=== PATIENT | female | born 1930 | race Caucasian/White ===

== ENCOUNTER 2016-06-09 15:45 | Inpatient (IN) | payer OTHER ==
[~2016-06-09] VITALS: Ht 149.9 cm; Wt 52.9 kg
[2016-06-09] MEDS ORDERED: HALOPERIDOL LACTATE 5 MG/ML 1 ML VIAL ONE (16:06)
[2016-06-09] MEDS ORDERED: LORAZEPAM 2 MG/ML 1 ML VIAL ONE (16:06)
[2016-06-09] MEDS ORDERED: LORAZEPAM 2 MG/ML 1 ML VIAL IM STA ×2 (16:07→17:03)
[2016-06-09] MEDS ORDERED: HALOPERIDOL LACTATE 5 MG/ML 1 ML VIAL IM STA ×2 (16:07→17:03)
[2016-06-09] MEDS ORDERED: SODIUM CHLORIDE 0.9% 500ML 500 ML IV STA (16:11)
--- NOTE | 2016-06-09 16:17 | EMERGENCY ROOM VISIT NOTE ---
History Report prepared by Sharon: Kerry Wakefield Under the Supervision of: Dr. Clemente Walter M.D. First contact with patient: 16:01 Chief Complaint: CONFUSION Stated Complaint: CONFUSION,COMBATIVE,SWEARING History of Present Illness The patient is a 85 year old female who presents to the Emergency Room with complaints of worsening confusion for the past couple of weeks, Per family the patient was seen at [facility] for these symptoms on May 28. She was diagnosed with a UTI. She was given a shot of antibiotics and a prescription. She had a CT scan of her head at that time. Family states that she has been increasingly confused since then. She has become much more combative. Her son states that "she fought us the whole way here." Family reports that the patient is hallucination. She is seeing people that are not actually there and she is talking to them. She takes aspirin daily but denies any other blood thinners. This history is limited due to the patient's AMS. Source of History: patient History Limited By: AMS Onset: a couple of weeks ago Position: other (global) Quality: other (confusion) Timing: worsening Review of Systems ROS is limited secondary to the patient's AMS. Past Medical & Surgical Medical Problems: (1) CAD (coronary artery disease) (2) Encephalopathy (3) GERD (gastroesophageal reflux disease) (4) HTN (hypertension) (5) Hypothyroidism (6) Tongue cancer Family History Non-pertinent due to advanced age. Social History Smoking Status: Unknown if Ever Smoked Housing Status: lives with family Occupation Status: unemployed Current/Historical Medications Scheduled Amlodipine (Norvasc), 5 MG PO DAILY Levothyroxine Sodium (Synthroid), 25 MCG PO QAM Lisinopril (Zestril), 20 MG PO DAILY Potassium Ext Rel (Klor-Con), 20 MEQ PO DAILY Ranitidine Hcl (Zantac), 150 MG PO BID Simvastatin (Zocor), 40 MG PO QPM Sotalol Hcl (Sotalol Hcl), 40 MG PO BID Allergies Coded Allergies: No Known Allergies (Unverified , 06/09/16) Physical Exam Vital Signs Date Time Temp Pulse Resp B/P Pulse Ox O2 Delivery O2 Flow Rate FiO2 06/09/16 19:45 66 16 94 06/09/16 19:15 66 13 91 2/19/17 18:45 78 15 06/09/16 18:40 173/97 06/09/16 17:53 130/86 06/09/16 17:45 88 14 06/09/16 17:15 86 16 06/09/16 16:45 103 17 96 06/09/16 16:24 97 Room Air 06/09/16 16:15 107 27 97 06/09/16 16:03 110 06/09/16 16:00 37.1 113 22 167/123 98 Room Air 06/09/16 15:58 167/123 Physical Exam GENERAL: Patient is an 85 year old female. She is combative, throwing drinks on the floor, family members holding her down. HEAD: Normocephalic atraumatic EYES: Ocular movements intact pupils equal and react to light OROPHARYNX mucous membranes are moist no exudates present no erythema or edema present NECK: Supple no nuchal rigidity CHEST: Good equal expansion LUNGS: Clear and equal to auscultation CARDIAC: Normal S1 and S2 ABDOMEN: Soft nontender no guarding BACK: No CVA tenderness EXTREMITIES: No pain upon palpation normal muscle strength in all groups no clubbing cyanosis or edema NEURO: Patient is uncooperative for examination. Medical Decision & Procedures ER Provider Diagnostic Interpretation: Radiology results as stated below per my review and radiologist interpretation: HEAD CT NONCONTRAST CT DOSE: 537.48 mGy.cm HISTORY: Mental status change Pt c/o AMS TECHNIQUE: Multiaxial CT images of the head were performed without the use of intravenous contrast. Comparison: None. Findings: The paranasal sinuses and mastoid air cells are clear. Findings of mild chronic small vessel change of aging. Normal age-related atrophy. Calcification of the basal ganglia. No acute intracranial hemorrhage. Impression: Age-related change. No acute process. Electronically signed by: Ruben Lovelace M.D. 06/09/2016 6:41 PM Dictated Date/Time: 06/09/2016 6:40 PM CHEST ONE VIEW PORTABLE CLINICAL HISTORY: Pt c/o AMS dyspnea COMPARISON STUDY: No previous studies for comparison. FINDINGS: Fixed hiatal hernia. Mild cardiomegaly. Mild emphysematous change. No evidence for focal infiltrate. IMPRESSION: Chronic change. No acute process. Electronically signed by: Ruben Lovelace M.D. 06/09/2016 4:58 PM Dictated Date/Time: 06/09/2016 4:56 PM ABDOMEN AND PELVIS CT WITH IV CONTRAST CT DOSE: 384.50 mGy.cm HISTORY: Pain. Mass. Pt c/o diffuse abd pain TECHNIQUE: Multiaxial CT images of the abdomen and pelvis were performed following the use of intravenous contrast. COMPARISON STUDY: None. FINDINGS: Lung bases are clear. A fixed hernia is present. Mild deep and bibasilar atelectasis is noted. Mild fatty infiltration of liver. Gallbladder is negative for distention. Kidneys enhance uniformly. The adrenal glands are unremarkable. There is a large primarily cystic mass arising from the pelvis and extending superiorly to the mid abdominal region. Maximum cross-sectional dimensions are 22 x 12 cm. Maximum cephalocaudal dimension is 22 cm. This mass displaces the bowel laterally. It contains focal areas of internal septation as well as lateral wall thickening primarily at the right and posterior aspect of the lesion area is appears to represent an ovarian neoplastic process. Uterus is slightly displaced posteriorly and to the right. Endometrium is somewhat prominent at 18 mm. This would indicate endometrial hyperplasia versus neoplasia. There is no evidence of bowel distention. Peritoneal and omental region show no significant carcinomatosis. The osseous structures are remarkable for mild to moderate degenerative change of aging. IMPRESSION: 1. Large primarily cystic mass arising from the soft tissue pelvis and extending in a superior fashion. 2. Maximum dimensions are 22 x 22 x 12 cm. 3. This contains several internal septations as well as several areas of peripheral wall thickening. 4. This displaces the bowel laterally although there are no obstructive characteristics. 5. No evidence for ascites or carcinomatosis/omental implants. 6. 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 7. Thickening of the endometrium at 18 mm. Differential considerations include endometrial hyperplasia versus neoplasia. 8. Bladder appears to be intact but somewhat compressed presumably due to mass effect. Hiatal hernia. Electronically signed by: Ruben Lovelace M.D. 06/09/2016 6:50 PM Dictated Date/Time: 06/09/2016 6:43 PM Laboratory Results 06/09/16 17:50 Red Blood Count 4.26, Mean Corpuscular Volume 95.3, Mean Corpuscular Hemoglobin 31.9, Mean Corpuscular Hemoglobin Concent 33.5, Mean Platelet Volume 10.1, Neutrophils (%) (Auto) 70.4, Lymphocytes (%) (Auto) 19.7, Monocytes (%) (Auto) 8.2, Eosinophils (%) (Auto) 1.5, Basophils (%) (Auto) 0.1, Neutrophils # (Auto) 4.74, Lymphocytes # (Auto) 1.33, Monocytes # (Auto) 0.55, Eosinophils # (Auto) 0.10, Basophils # (Auto) 0.01 06/09/16 17:50 Test 06/09/16 17:12 06/09/16 17:50 06/09/16 17:53 Bedside Hemoglobin 13.6 g/dl (12.0-16.0) Bedside Hematocrit 40 % (37-47) Bedside Sodium 140 mEq/L (135-144) Bedside Potassium 3.0 mEq/L (3.3-5.0) Bedside Chloride 99 mEq/L (101-112) Bedside Total CO2 20 mEq/l (24-31) Bedside Blood Urea Nitrogen 14 mg/dl (7-18) Bedside Creatinine 0.9 mg/dl (0.6-1.3) Bedside Glucose (other) 209 mg/dl (70-99) Bedside Ionized Calcium (Ale) 1.11 mmol/l (1.12-1.32) White Blood Count 6.74 K/uL (4.8-10.8) Red Blood Count 4.26 M/uL (4.2-5.4) Hemoglobin 13.6 g/dL (12.0-16.0) Hematocrit 40.6 % (37-47) Mean Corpuscular Volume 95.3 fL (80-100) Mean Corpuscular Hemoglobin 31.9 pg (25-34) Mean Corpuscular Hemoglobin Concent 33.5 g/dl (32-36) Platelet Count 267 K/uL (130-400) Mean Platelet Volume 10.1 fL (7.4-10.4) Neutrophils (%) (Auto) 70.4 % Lymphocytes (%) (Auto) 19.7 % Monocytes (%) (Auto) 8.2 % Eosinophils (%) (Auto) 1.5 % Basophils (%) (Auto) 0.1 % Neutrophils # (Auto) 4.74 K/uL (1.4-6.5) Lymphocytes # (Auto) 1.33 K/uL (1.2-3.4) Monocytes # (Auto) 0.55 K/uL (0.11-0.59) Eosinophils # (Auto) 0.10 K/uL (0-0.5) Basophils # (Auto) 0.01 K/uL (0-0.2) RDW Standard Deviation 48.3 fL (36.4-46.3) RDW Coefficient of Variation 13.9 % (11.5-14.5) Immature Granulocyte % (Auto) 0.1 % Immature Granulocyte # (Auto) 0.01 K/uL (0.00-0.02) Anion Gap 17.0 mmol/L (3-11) Est Creatinine Clear Calc Drug Dose 28.0 ml/min Estimated GFR () 43.6 Estimated GFR (Non- 37.6 BUN/Creatinine Ratio 10.8 (10-20) Calcium Level 8.6 mg/dl (8.5-10.1) Magnesium Level 1.8 mg/dl (1.8-2.4) Total Bilirubin 0.4 mg/dl (0.2-1) Direct Bilirubin < 0.1 mg/dl (0-0.2) Aspartate Amino Transf (AST/SGOT) 18 U/L (15-37) Alanine Aminotransferase (ALT/SGPT) 19 U/L (12-78) Alkaline Phosphatase 76 U/L (45-117) Total Creatine Kinase 120 U/L (26-192) Creatine Kinase MB 1.3 ng/ml (0.5-3.6) Creatine Kinase MB Ratio 1.1 (0-3.0) Troponin I < 0.015 ng/ml (0-0.045) Total Protein 7.5 gm/dl (6.4-8.2) Albumin 3.4 gm/dl (3.4-5.0) Thyroid Stimulating Hormone (TSH) 113.000 uIu/ml (0.300-4.500) Free Thyroxine 0.70 ng/dl (0.80-1.60) Urine Color YELLOW Urine Appearance CLEAR (CLEAR) Urine pH 6.0 (4.5-7.5) Urine Specific [place] 1.002 (1.000-1.030) Urine Protein NEG (NEG) Urine Glucose (UA) NEG (NEG) Urine Ketones NEG (NEG) Urine Occult Blood NEG (NEG) Urine Nitrite NEG (NEG) Urine Bilirubin NEG (NEG) Urine Urobilinogen NEG (NEG) Urine Leukocyte Esterase NEG (NEG) Labs reviewed by ED physician. Medications Administered Medications (Trade) Dose Ordered Sig/Rut Route Start Time Stop Time Status Last Admin Dose Admin Haloperidol Lactate (Haldol Inj) 5 mg NOW STAT IM 06/09/16 16:07 06/09/16 16:08 DC 06/09/16 16:17 5 MG Lorazepam 1 mg 1 mg NOW STAT IM 06/09/16 16:07 06/09/16 16:08 DC 06/09/16 16:17 1 MG Sodium Chloride (Nss 500ml) 500 ml @ 999 mls/hr Q31M STAT IV 06/09/16 16:11 06/09/16 16:41 DC 06/09/16 17:23 999 MLS/HR Ondansetron HCl (Zofran Inj) 4 mg NOW STAT IV 06/09/16 17:35 06/09/16 17:37 DC 06/09/16 19:32 4 MG Potassium Chloride (Megan Ciel Elix) 40 meq STK-MED ONCE .ROUTE 06/09/16 19:26 06/09/16 19:28 DC 06/09/16 19:33 40 MEQ ECG Indication: altered mental status Rate (beats per minute): 91 Rhythm: normal sinus Findings: no acute ischemic change, no ectopy ED Course 1601: Past medical records reviewed. The patient was evaluated in room C12B. A complete history and physical examination was performed. 1607: Ativan 1 mg IM, Haldol 5 mg IM 1611: NSS 500 ml @ 999 mls/hr IV 1650: I reassessed the patient at this time. She is still squirming and removing her things. 1703: Ativan 1 mg IM, Haldol 5 mg IM 1717: I reassessed the patient again. She is more improved and resting more comfortably. 1735: Zofran 4 mg IV, Klor-Con M10 4 meq PO 190: I reassessed the patient at this time. I discussed the results and treatment plan with the patient's family. I answered all pertaining questions that they had. They expressed understanding and verbalized agreement. 190: At this time I spoke with WYATT Singh. We discussed the patients results and treatment plan. [facility] Medical Decision Differential diagnosis: Etiologies such as metabolic, infection, hypoglycemia, electrolyte abnormalities , cardiac sources, intracerebral event, toxicologic, neurologic, as well as others were entertained. This is an 85-year-old female who presents to emergency department complaining of altered mental status. Upon arrival to emergency department the patient is combative spitting fighting and cursing at medical staff. Based on these findings and to get a proper medical assessment screening, the patient was sedated with Haldol 5 mg as well as Ativan 1 mg. Repeat examination revealed much improvement patient's symptoms. Laboratory work was able to be obtained and the patient was sent for CAT scan of the head as well as CT the abdomen pelvis. The and pelvis is concerning for a large cystic mass which appears to be ovarian in nature. I did discuss these findings with the family. The patient was admitted to the hospitalist service. Consults Time Called: [id number] Consulting Physician: WYATT Singh Returned Call: 1908 At this time I spoke with WYATT Singh. We discussed the patients results and treatment plan. The patient will be evaluated by the [facility] for further management. Impression Primary Impression: Confusion Additional Impressions: Hypokalemia Pelvic mass Critical Care I have personally spent greater than 30 minutes of critical care time in the direct management of this patient. This includes bedside care, interpretation of diagnostic studies, and testing, discussion with consultants, patient, and family members, and other required patient management activities. This 30 minutes is in excess of all separately billable procedures. Scribe Attestation The scribe's documentation has been prepared under my direction and personally reviewed by me in its entirety. I confirm that the note above accurately reflects all work, treatment, procedures, and medical decision making performed by me. Departure Information Dispostion Being Evaluated By Hospitalist Referrals No Doctor, Assigned (PCP) Patient Instructions [facility] Problem Qualifiers
[2016-06-09] MEDS ORDERED: SIMV40TA2 PO (16:24)
[2016-06-09] MEDS ORDERED: RANI150T3 PO (16:24)
[2016-06-09] MEDS ORDERED: POTA20TA16 PO (16:24)
[2016-06-09] MEDS ORDERED: SOTA80TA PO (16:24)
[2016-06-09] MEDS ORDERED: LISI-725 PO (16:24)
[2016-06-09] MEDS ORDERED: AMLO-110 PO (16:24)
[2016-06-09] MEDS ORDERED: SYN25 PO (16:34)
[2016-06-09] MEDS ORDERED: OPTIRAY 320 IV PRN (16:45)
--- NOTE | 2016-06-09 16:59 | DIAGNOSTIC IMAGING REPORT ---
CHEST ONE VIEW PORTABLE CLINICAL HISTORY: Pt c/o AMS dyspnea COMPARISON STUDY: No previous studies for comparison. FINDINGS: Fixed hiatal hernia. Mild cardiomegaly. Mild emphysematous change. No evidence for focal infiltrate. IMPRESSION: Chronic change. No acute process. Electronically signed by: Ruben Lovelace M.D. 06/09/2016 4:58 PM Dictated Date/Time: 06/09/2016 4:56 PM
[2016-06-09 17:29] LABS: ISTAT CREATININE 0.9 mg/dl (0.6-1.3); ISTAT HEMOGLOBIN 13.6 g/dl (12.0-16.0); ISTAT IONIZED CALCIUM 1.11 mmol/l (1.12-1.32)
[2016-06-09] MEDS ORDERED: POTASSIUM CHLORIDE 10 MEQ TABCR PO STA (17:35)
[2016-06-09] MEDS ORDERED: ONDANSETRON INJ 2 MG/ML 2 ML VIAL IV STA (17:35)
[2016-06-09 18:05] LABS: BASO % 0.1 %; BASO ABS # 0.01 K/uL (0-0.2); COMPLETE YES; EOS % 1.5 %; HEMATOCRIT 40.6 % (37-47); IG% 0.1 %; LYMPH % 19.7 %; LYMPH ABS # 1.33 K/uL (1.2-3.4); MEAN CELL VOLUME 95.3 fL (80-100); MEAN CORPUSCULAR HEMOGLOBIN 31.9 pg (25-34); MEAN CORPUSCULAR HGB CONC 33.5 g/dl (32-36); MEAN PLATELET VOLUME 10.1 fL (7.4-10.4); MONO % 8.2 %; NEUT % 70.4 %; PLATELET COUNT 267 K/uL (130-400); RED BLOOD COUNT 4.26 M/uL (4.2-5.4); WHITE BLOOD COUNT 6.74 K/uL (4.8-10.8)
[2016-06-09 18:25] LABS: ALT/SGPT 19 U/L (12-78); AST/SGOT 18 U/L (15-37); BLOOD UREA NITROGEN 14 mg/dl (7-18); BUN/CREATININE RATIO 10.8 (10-20); CALCIUM 8.6 mg/dl (8.5-10.1); CARBON DIOXIDE 22 mmol/L (21-32); CHLORIDE 103 mmol/L (98-107); GLUCOSE 192 mg/dl (70-99); SODIUM 142 mmol/L (136-145)
--- NOTE | 2016-06-09 18:42 | DIAGNOSTIC IMAGING REPORT ---
HEAD CT NONCONTRAST CT DOSE: 537.48 mGy.cm HISTORY: Mental status change Pt c/o AMS TECHNIQUE: Multiaxial CT images of the head were performed without the use of intravenous contrast. Comparison: None. Findings: The paranasal sinuses and mastoid air cells are clear. Findings of mild chronic small vessel change of aging. Normal age-related atrophy. Calcification of the basal ganglia. No acute intracranial hemorrhage. Impression: Age-related change. No acute process. Electronically signed by: Ruben Lovelace M.D. 06/09/2016 6:41 PM Dictated Date/Time: 06/09/2016 6:40 PM
--- NOTE | 2016-06-09 18:51 | DIAGNOSTIC IMAGING REPORT ---
ABDOMEN AND PELVIS CT WITH IV CONTRAST CT DOSE: 384.50 mGy.cm HISTORY: Pain. Mass. Pt c/o diffuse abd pain TECHNIQUE: Multiaxial CT images of the abdomen and pelvis were performed following the use of intravenous contrast. COMPARISON STUDY: None. FINDINGS: Lung bases are clear. A fixed hernia is present. Mild deep and bibasilar atelectasis is noted. Mild fatty infiltration of liver. Gallbladder is negative for distention. Kidneys enhance uniformly. The adrenal glands are unremarkable. There is a large primarily cystic mass arising from the pelvis and extending superiorly to the mid abdominal region. Maximum cross-sectional dimensions are 22 x 12 cm. Maximum cephalocaudal dimension is 22 cm. This mass displaces the bowel laterally. It contains focal areas of internal septation as well as lateral wall thickening primarily at the right and posterior aspect of the lesion area is appears to represent an ovarian neoplastic process. Uterus is slightly displaced posteriorly and to the right. Endometrium is somewhat prominent at 18 mm. This would indicate endometrial hyperplasia versus neoplasia. There is no evidence of bowel distention. Peritoneal and omental region show no significant carcinomatosis. The osseous structures are remarkable for mild to moderate degenerative change of aging. IMPRESSION: 1. Large primarily cystic mass arising from the soft tissue pelvis and extending in a superior fashion. 2. Maximum dimensions are 22 x 22 x 12 cm. 3. This contains several internal septations as well as several areas of peripheral wall thickening. 4. This displaces the bowel laterally although there are no obstructive characteristics. 5. No evidence for ascites or carcinomatosis/omental implants. 6. 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 7. Thickening of the endometrium at 18 mm. Differential considerations include endometrial hyperplasia versus neoplasia. 8. Bladder appears to be intact but somewhat compressed presumably due to mass effect. Hiatal hernia. Electronically signed by: Ruben Lovelace M.D. 06/09/2016 6:50 PM Dictated Date/Time: 06/09/2016 6:43 PM
[2016-06-09 19:15] LABS: URINE APPEARANCE CLEAR (CLEAR); URINE BILIRUBIN NEG (NEG); URINE COLOR YELLOW; URINE NITRITE NEG (NEG); URINE SPECIFIC GRAVITY 1.002 (1.000-1.030); UROBILINOGEN NEG (NEG)
[2016-06-09 19:18] LABS: MANUAL MICROSCOPIC REQUIRED? NO; REVIEW REQ? NO
[2016-06-09] MEDS ORDERED: POTASSIUM CHLORIDE 20 MEQ/15 ML UDC ONE (19:26)
[2016-06-09 19:39] LABS: ALKALINE PHOSPHATASE 76 U/L (45-117); CKMB/CK RATIO 1.1 (0-3.0)
--- NOTE | 2016-06-09 20:14 | History and Physical ---
History & Physical Date & Time of Service: Jun 09, 2016 at 19:59 Chief Complaint: Confusion,Combative,Swearing Primary Care Physician: Dr. Allan History of Present Illness 85 year old female who presents to the ER with altered mental status. Family is at the bedside who provide the history. They report that on May 28 patient had an acute change in her mental status. They report she was much more confused than her baseline. She was taken to [facility] ED and were told that her thyroid was abnormal and that she should follow up with her PCP. Patient's mental status has continued to get worse. She has become increasingly combative and has been hallucinating. Family has made multiple appointments with her PCP however they could not get her out of the house. Today in the ED patient was grabbing her stomach and appeared to be in pain. No other symptoms were noted. In the ED, patient had a CT scan of her abdomen that is showing a large mass, possibly ovarian neoplasm in nature. Labs show TSH > 100 but are otherwise unremarkable. Vitals are stable. Patient received IM Haldol and Ativan and is currently resting quietly in bed. Past Medical/Surgical History Medical Problems: (1) CAD (coronary artery disease) Permanent Comment: s/p stenting x 2 Status: Chronic (2) GERD (gastroesophageal reflux disease) Status: Chronic (3) HTN (hypertension) Status: Chronic (4) Hypothyroidism Status: Chronic (5) Tongue cancer Permanent Comment: s/p resection Status: Chronic Family History non contributory due to patient's age Social History Smoking Status: Current Every Day Smoker Alcohol Use: none Housing status: lives with family Allergies Coded Allergies: No Known Allergies (Unverified , 06/09/16) Home Medications Scheduled Amlodipine (Norvasc), 5 MG PO DAILY Levothyroxine Sodium (Synthroid), 25 MCG PO QAM Lisinopril (Zestril), 20 MG PO DAILY Potassium Ext Rel (Klor-Con), 20 MEQ PO DAILY Ranitidine Hcl (Zantac), 150 MG PO BID Simvastatin (Zocor), 40 MG PO QPM Sotalol Hcl (Sotalol Hcl), 40 MG PO BID Review of Systems unable to be completed with patient due to mental status Physical Exam Vital Signs Date Time Temp Pulse Resp B/P Pulse Ox O2 Delivery O2 Flow Rate FiO2 06/09/16 19:45 66 16 94 06/09/16 19:15 66 13 91 06/09/16 18:45 78 15 06/09/16 18:40 173/97 06/09/16 17:53 130/86 06/09/16 17:45 88 14 06/09/16 17:15 86 16 06/09/16 16:45 103 17 96 06/09/16 16:24 97 Room Air 06/09/16 16:15 107 27 97 06/09/16 16:03 110 06/09/16 16:00 37.1 113 22 167/123 98 Room Air 06/09/16 15:58 167/123 General Appearance: no apparent distress Head: normocephalic Eyes: normal inspection ENT: hearing grossly normal Neck: supple, no JVD Respiratory/Chest: lungs clear, normal breath sounds, no respiratory distress Cardiovascular: regular rate, rhythm, no edema, normal peripheral pulses Abdomen/GI: normal bowel sounds, non tender, soft, + distended Extremities/Musculoskelatal: normal inspection, no calf tenderness Neurologic/Psych: + pertinent finding (opens eyes to verbal stimuli however does not speak; noted patient received IM Haldol and Ativan in ED ) Skin: normal color, warm/dry Diagnostics Laboratory Results Results Past 24 Hours Test 06/09/16 17:12 06/09/16 17:50 06/09/16 17:53 Range/Units Bedside Hemoglobin 13.6 12.0-16.0 g/dl Bedside Hematocrit 40 37-47 % Bedside Sodium 140 135-144 mEq/L Bedside Potassium 3.0 3.3-5.0 mEq/L Bedside Chloride 99 101-112 mEq/L Bedside Total CO2 20 24-31 mEq/l Anion Gap 24.0 17.0 3-11 mmol/L Bedside Blood Urea Nitrogen 14 7-18 mg/dl Bedside Creatinine 0.9 0.6-1.3 mg/dl Bedside Glucose (other) 209 70-99 mg/dl Bedside Ionized Calcium (Ale) 1.11 1.12-1.32 mmol/l White Blood Count 6.74 4.8-10.8 K/uL Red Blood Count 4.26 4.2-5.4 M/uL Hemoglobin 13.6 12.0-16.0 g/dL Hematocrit 40.6 37-47 % Mean Corpuscular Volume 95.3 80-100 fL Mean Corpuscular Hemoglobin 31.9 25-34 pg Mean Corpuscular Hemoglobin Concent 33.5 32-36 g/dl Platelet Count 267 130-400 K/uL Mean Platelet Volume 10.1 7.4-10.4 fL Neutrophils (%) (Auto) 70.4 % Lymphocytes (%) (Auto) 19.7 % Monocytes (%) (Auto) 8.2 % Eosinophils (%) (Auto) 1.5 % Basophils (%) (Auto) 0.1 % Neutrophils # (Auto) 4.74 1.4-6.5 K/uL Lymphocytes # (Auto) 1.33 1.2-3.4 K/uL Monocytes # (Auto) 0.55 0.11-0.59 K/uL Eosinophils # (Auto) 0.10 0-0.5 K/uL Basophils # (Auto) 0.01 0-0.2 K/uL RDW Standard Deviation 48.3 36.4-46.3 fL RDW Coefficient of Variation 13.9 11.5-14.5 % Immature Granulocyte % (Auto) 0.1 % Immature Granulocyte # (Auto) 0.01 0.00-0.02 K/uL Sodium Level 142 136-145 mmol/L Potassium Level 3.0 3.5-5.1 mmol/L Chloride Level 103 98-107 mmol/L Carbon Dioxide Level 22 21-32 mmol/L Blood Urea Nitrogen 14 7-18 mg/dl Creatinine 1.30 0.60-1.20 mg/dl Est Creatinine Clear Calc Drug Dose 28.0 ml/min Estimated GFR () 43.6 Estimated GFR (Non- 37.6 BUN/Creatinine Ratio 10.8 10-20 Random Glucose 192 70-99 mg/dl Calcium Level 8.6 8.5-10.1 mg/dl Total Bilirubin 0.4 0.2-1 mg/dl Direct Bilirubin < 0.1 0-0.2 mg/dl Aspartate Amino Transf (AST/SGOT) 18 15-37 U/L Alanine Aminotransferase (ALT/SGPT) 19 12-78 U/L Alkaline Phosphatase 76 45-117 U/L Total Creatine Kinase 120 26-192 U/L Creatine Kinase MB 1.3 0.5-3.6 ng/ml Creatine Kinase MB Ratio 1.1 0-3.0 Troponin I < 0.015 0-0.045 ng/ml Total Protein 7.5 6.4-8.2 gm/dl Albumin 3.4 3.4-5.0 gm/dl Thyroid Stimulating Hormone (TSH) > 100.000 0.300-4.500 uIu/ml Urine Color YELLOW Urine Appearance CLEAR CLEAR Urine pH 6.0 4.5-7.5 Urine Specific [place] 1.002 1.000-1.030 Urine Protein NEG NEG Urine Glucose (UA) NEG NEG Urine Ketones NEG NEG Urine Occult Blood NEG NEG Urine Nitrite NEG NEG Urine Bilirubin NEG NEG Urine Urobilinogen NEG NEG Urine Leukocyte Esterase NEG NEG Diagnostic Radiology CXR Impression: Age-related change. No acute process. CT HEAD IMPRESSION: Chronic change. No acute process. CT ABD/PELVIS IMPRESSION: 1. Large primarily cystic mass arising from the soft tissue pelvis and extending in a superior fashion. 2. Maximum dimensions are 22 x 22 x 12 cm. 3. This contains several internal septations as well as several areas of peripheral wall thickening. 4. This displaces the bowel laterally although there are no obstructive characteristics. 5. No evidence for ascites or carcinomatosis/omental implants. 6. 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 7. Thickening of the endometrium at 18 mm. Differential considerations include endometrial hyperplasia versus neoplasia. 8. Bladder appears to be intact but somewhat compressed presumably due to mass effect. Hiatal hernia. Impression Assessment and Plan ALTERED MENTAL STATUS - patient presenting with 10 day history of increasing confusion and agitation - CT abd/pelvis shows large pelvic mass concerning for ovarian neoplasm - CT head negative; likely will need MRI - U/A clean PELVIC MASS - concerning for ovarian neoplasm - gyne consult HYPOTHYROIDISM - TSH > 100 - adjust levothyroxine HTN - on amlodipine and lisinopril CAD - [facility] follows with DR. Lieberman - will get records ? HX ARRHYTHMIA - on Sotalol - will need to review cardiology records Assessment/Plan IM ATTENDING : Patient seen and examined. Preceding documentation by WYATT Gutiérrez, reviewed. FINAL ASSESSMENT AND PLAN as follows: 1. 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 Hypertension stable 3. CAD status post stenting 4. SSS, px refused PPM as per family 5. hypothyroidism, TSH elevated questionable compliance 6. hyperglycemia rule out DM 7. ongoing tobacco abuse. 8. Pelvic mass, probable malignancy PCU. MRI of the brain. Further management pending MRI results. Gynecology consults for pelvic mass. Check hemoglobin A1c. increase Levothyroxine dose, recheck TSH next month PT/OT evaluation. DVT prophylaxis Lovenox subQ. Full code as per daughter, Miss Charis Sullivan. Contact number [phone]
[2016-06-09 20:32] LABS: MAGNESIUM 1.8 mg/dl (1.8-2.4)
[2016-06-09] MEDS ORDERED: NITROGLYCERIN 0.4 MG SL PER TAB CHARGE SL PRN (21:15)
[2016-06-09] MEDS ORDERED: TRAMADOL HCL 50 MG TAB PO PRN (21:15)
[2016-06-09] MEDS ORDERED: ONDANSETRON INJ 2 MG/ML 2 ML VIAL IV PRN (21:15)
[2016-06-09] MEDS ORDERED: ACETAMINOPHEN 325 MG TAB PO PRN (21:15)
[2016-06-09] MEDS ORDERED: LACTATED RINGER'S 1000ML 1,000 ML IV ONE ×2 (21:15→22:30)
[2016-06-09] MEDS ORDERED: HYDROmorphone INJ 0.5 MG/0.5 ML SYR IV PRN (21:15)
[2016-06-09] MEDS ORDERED: HALOPERIDOL LACTATE 5 MG/ML 1 ML VIAL IM PRN (21:15)
[2016-06-09 21:53] VITALS: BP 179/109; PULSE 75; TEMP 36.3; O2SAT 94; Ht 149.9 cm; Wt 52.9 kg
[2016-06-09 23:12] VITALS: BP 165/92; PULSE 72; TEMP 36.7; O2SAT 95
[2016-06-09 23:59] VITALS: O2SAT 94
[2016-06-10] VITALS (7 sets, daily range): BP systolic 128–180; BP diastolic 72–84; PULSE 69–105; TEMP 36.4–37; O2SAT 94–98
[2016-06-10] MEDS ORDERED: HALOPERIDOL 1 MG TAB PO PRN (03:30)
--- NOTE | 2016-06-10 03:59 | HISTORY & PHYSICAL EXAMINATION ---
DATE OF ADMISSION: 06/09/2016 IM ATTENDING : Patient seen and examined. Preceding documentation by WYATT Gutiérrez, reviewed. FINAL ASSESSMENT AND PLAN as follows: 1. Encephalopathy in the last 2 weeks differentials include : CVA, DEPALLETIZER OPERATOR tumor 2. Hypertension stable 3. CAD status post stenting 4. SSS, px refused PPM as per family 5. hypothyroidism, TSH elevated questionable compliance 6. hyperglycemia rule out DM 7. ongoing tobacco abuse. 8. Pelvic mass, probable malignancy PCU. MRI of the brain. Further management pending MRI results. Gynecology consults for pelvic mass. Check hemoglobin A1c. increase Levothyroxine dose, recheck TSH next month PT/OT evaluation. DVT prophylaxis Lovenox subQ. Full code as per daughter, Miss Charis Sullivan. Contact number [phone] [facility]
[2016-06-10] MEDS: LEVOTHYROXINE 25 MCG TAB PO SCH (05:55)
[2016-06-10 06:31] LABS: BASO % 0.3 %; BASO ABS # 0.02 K/uL (0-0.2); COMPLETE YES; EOS % 1.3 %; HEMATOCRIT 36.9 % (37-47); IG% 0.2 %; LYMPH % 28.1 %; MEAN CELL VOLUME 93.4 fL (80-100); MEAN CORPUSCULAR HEMOGLOBIN 31.1 pg (25-34); MEAN CORPUSCULAR HGB CONC 33.3 g/dl (32-36); MEAN PLATELET VOLUME 9.8 fL (7.4-10.4); MONO % 11.9 %; NEUT % 58.2 %; PLATELET COUNT 261 K/uL (130-400); RED BLOOD COUNT 3.95 M/uL (4.2-5.4); WHITE BLOOD COUNT 6.06 K/uL (4.8-10.8)
[2016-06-10 07:12] LABS: INR 1.1 (0.9-1.1); PROTHROMBIN TIME (PATIENT) 11.6 SECONDS (9.0-12.0)
[2016-06-10 07:19] LABS: BUN/CREATININE RATIO 13.1 (10-20); CALCIUM 8.5 mg/dl (8.5-10.1); CREATININE 0.7 mg/dl (0.60-1.20); POTASSIUM 3.7 mmol/L (3.5-5.1)
[2016-06-10 08:23] LABS: ESTIMATED AVERAGE GLUCOSE 128 mg/dl; HA1C FLAG Normal (Normal)
[2016-06-10] MEDS ORDERED: ENOXAPARIN 30 MG/0.3 ML SYR SC SCH (09:00)
--- NOTE | 2016-06-10 09:16 | Progress Note ---
Medicine Progress Note Date & Time of Visit: Jun 10, 2016 at 08:59. Subjective no acute events overnight seen this AM with ROLANDO Mcmillan/Adán peñaloza, very hard of hearing, cooperative denies pain, shortness of breath ROS difficult to assess due to confusion Objective Last 8 Hrs Date Time Temp Pulse Resp B/P Pulse Ox O2 Delivery O2 Flow Rate FiO2 06/10/16 07:24 37.0 69 18 171/83 98 Room Air 06/10/16 04:00 94 Room Air 06/10/16 03:41 36.7 75 18 152/83 97 Room Air Physical Exam: General- not oriented, pleasant, not in distress, no acc muscle use Head- atraumatic Eyes- anicteric ENT- oropharynx clear Neck- supple, no JVD, no adenopathy, no thyromegaly Lungs- clear breath sounds bilaterally Heart- normal rate, regular rhythm; no murmurs Abdomen- normal bowel sounds, soft, nontender Extremities- no pretibial edema, no calf tenderness; peripheral pulses intact Neuro- alert, not oriented; PERRL, EOMI; no facial palsy; moves all extremities equally Skin- warm & dry Laboratory Results: Last 24 Hours Test 06/09/16 17:12 06/09/16 17:50 06/09/16 17:53 06/10/16 05:40 Bedside Hemoglobin 13.6 g/dl Bedside Hematocrit 40 % Bedside Sodium 140 mEq/L Bedside Potassium 3.0 mEq/L Bedside Chloride 99 mEq/L Bedside Total CO2 20 mEq/l Anion Gap 24.0 mmol/L 17.0 mmol/L 13.0 mmol/L Bedside Blood Urea Nitrogen 14 mg/dl Bedside Creatinine 0.9 mg/dl Bedside Glucose (other) 209 mg/dl Bedside Ionized Calcium (Ale) 1.11 mmol/l White Blood Count 6.74 K/uL 6.06 K/uL Red Blood Count 4.26 M/uL 3.95 M/uL Hemoglobin 13.6 g/dL 12.3 g/dL Hematocrit 40.6 % 36.9 % Mean Corpuscular Volume 95.3 fL 93.4 fL Mean Corpuscular Hemoglobin 31.9 pg 31.1 pg Mean Corpuscular Hemoglobin Concent 33.5 g/dl 33.3 g/dl Platelet Count 267 K/uL 261 K/uL Mean Platelet Volume 10.1 fL 9.8 fL Neutrophils (%) (Auto) 70.4 % 58.2 % Lymphocytes (%) (Auto) 19.7 % 28.1 % Monocytes (%) (Auto) 8.2 % 11.9 % Eosinophils (%) (Auto) 1.5 % 1.3 % Basophils (%) (Auto) 0.1 % 0.3 % Neutrophils # (Auto) 4.74 K/uL 3.53 K/uL Lymphocytes # (Auto) 1.33 K/uL 1.70 K/uL Monocytes # (Auto) 0.55 K/uL 0.72 K/uL Eosinophils # (Auto) 0.10 K/uL 0.08 K/uL Basophils # (Auto) 0.01 K/uL 0.02 K/uL RDW Standard Deviation 48.3 fL 47.2 fL RDW Coefficient of Variation 13.9 % 13.8 % Immature Granulocyte % (Auto) 0.1 % 0.2 % Immature Granulocyte # (Auto) 0.01 K/uL 0.01 K/uL Sodium Level 142 mmol/L 144 mmol/L Potassium Level 3.0 mmol/L 3.7 mmol/L Chloride Level 103 mmol/L 107 mmol/L Carbon Dioxide Level 22 mmol/L 24 mmol/L Blood Urea Nitrogen 14 mg/dl 9 mg/dl Creatinine 1.30 mg/dl 0.70 mg/dl Est Creatinine Clear Calc Drug Dose 28.0 ml/min 44.7 ml/min Estimated GFR () 43.6 92.2 Estimated GFR (Non- 37.6 79.6 BUN/Creatinine Ratio 10.8 13.1 Random Glucose 192 mg/dl 90 mg/dl Estimated Average Glucose 128 mg/dl Hemoglobin A1c 6.1 % Calcium Level 8.6 mg/dl 8.5 mg/dl Magnesium Level 1.8 mg/dl Total Bilirubin 0.4 mg/dl Direct Bilirubin < 0.1 mg/dl Aspartate Amino Transf (AST/SGOT) 18 U/L Alanine Aminotransferase (ALT/SGPT) 19 U/L Alkaline Phosphatase 76 U/L Total Creatine Kinase 120 U/L Creatine Kinase MB 1.3 ng/ml Creatine Kinase MB Ratio 1.1 Troponin I < 0.015 ng/ml Total Protein 7.5 gm/dl Albumin 3.4 gm/dl Thyroid Stimulating Hormone (TSH) 113.000 uIu/ml Free Thyroxine 0.70 ng/dl Urine Color YELLOW Urine Appearance CLEAR Urine pH 6.0 Urine Specific [place] 1.002 Urine Protein NEG Urine Glucose (UA) NEG Urine Ketones NEG Urine Occult Blood NEG Urine Nitrite NEG Urine Bilirubin NEG Urine Urobilinogen NEG Urine Leukocyte Esterase NEG Test 06/10/16 06:53 Prothrombin Time 11.6 SECONDS Prothromb Time International Ratio 1.1 Assessment & Plan 85 year old female with history of CAD, s/p Stent, Sick Sinus Syndrome, HTN, GERD, Hypothyroidism presenting with altered mental status. ALTERED MENTAL STATUS, possible Acute Delirium on Dementia - patient presenting with 10 day history of increasing confusion and agitation - recently treated for UTI with antibiotics will obtain records from [facility] - CT abd/pelvis shows large pelvic mass concerning for ovarian neoplasm CT head negative Brain MRI: pending - from partially treated UTI or Antibiotic related? will obtain records from [facility] will repeat urine cultures - r/o CVA, Mets? MRI brain - Hypothyroidism? Lthyroxine increased to 50mcg will consult Neurology PELVIC MASS - concerning for ovarian neoplasm - gyne consulted HYPOTHYROIDISM - TSH > 100 - no other overt signs of myxedema coma - lthyroxine increased from 25 to 50mcg repeat TFTs in 3-4 weeks have to be conservative with increasing lthyroxine due to CAD history HTN - on amlodipine and lisinopril - monitor CAD - s/p stenting x 2 in 2013 at [facility] [place] - follows with DR. Lieberman - will get records - should be on Aspirin, will verify with family HX ARRHYTHMIA - on Sotalol DVT prophylaxis Lovenox Disposition pending Current Inpatient Medications: Current Inpatient Medications Medications (Trade) Dose Ordered Sig/Rut Route Start Time Stop Time Status Last Admin Dose Admin Ioversol (Optiray 320) 125 ml UD PRN IV 06/09/16 16:45 06/13/16 16:44 Enoxaparin Sodium (Lovenox Inj) 30 mg DAILY SC 06/10/16 09:00 07/10/16 08:59 Acetaminophen (Tylenol Tab) 650 mg Q4H PRN PO 06/09/16 21:15 07/09/16 21:14 Nitroglycerin (Nitrostat Tab) 0.4 mg UD PRN SL 06/09/16 21:15 07/09/16 21:14 Ondansetron HCl (Zofran Inj) 4 mg Q6H PRN IV 06/09/16 21:15 07/09/16 21:14 Tramadol HCl (Ultram Tab) 25 mg Q6H PRN PO 06/09/16 21:15 07/09/16 21:14 Hydromorphone HCl (Dilaudid Inj) 0.5 mg Q3H PRN IV 06/09/16 21:15 06/23/16 21:14 Haloperidol Lactate (Haldol Inj) 2 mg Q2H PRN IM 06/09/16 21:15 07/09/16 21:14 Amlodipine Besylate (Norvasc Tab) 5 mg DAILY PO 06/10/16 09:00 07/10/16 08:59 Levothyroxine Sodium (Synthroid Tab) 50 mcg DAILYBB PO 06/10/16 06:00 07/10/16 05:59 06/10/16 05:55 50 MCG Lisinopril (Zestril Tab) 20 mg DAILY PO 06/10/16 09:00 07/10/16 08:59 Ranitidine HCl (zANTac TAB) 150 mg BID PO 06/10/16 09:00 07/10/16 08:59 Simvastatin (Zocor Tab) 40 mg QPM PO 06/10/16 21:00 07/10/16 20:59 Sotalol HCl 40 mg 40 mg BID PO 06/10/16 09:00 07/10/16 08:59 Lactated Ringer's (Lr 1000ml) 1,000 ml @ 75 mls/hr [id number] ONCE IV 06/09/16 22:30 06/10/16 11:49 06/09/16 22:19 75 MLS/HR Nicotine (Nicoderm Cq 7 Mg Patch) 1 patch QAM TD 06/10/16 09:00 07/10/16 08:59 Miscellaneous (Remove Nicoderm Patch) 1 ea HS N/A 06/10/16 21:00 07/10/16 20:59 Haloperidol (Haldol Tab) 2 mg Q4H PRN PO 06/10/16 03:30 07/10/16 03:29
[2016-06-10] MEDS ORDERED: CLONIDINE HCL 0.1 MG TAB PO PRN (09:30)
[2016-06-10] MEDS ORDERED: ASPIRIN 81 MG ECTAB PO ONE (10:00)
[2016-06-10] MEDS: LISINOPRIL 20 MG TAB PO SCH ×2 (10:03→10:11)
[2016-06-10] MEDS: RANITIDINE HCL 150 MG TAB PO SCH ×3 (10:03→21:47)
[2016-06-10] MEDS: AMLODIPINE BESYLATE 5 MG TAB PO SCH ×2 (10:03→10:11)
[2016-06-10] MEDS: SOTALOL HCL 80 MG TAB PO SCH ×3 (10:03→21:48)
[2016-06-10] MEDS: NICOTINE 7 MG/24 HR TDSY TD SCH (10:04)
[2016-06-10] MEDS: ENOXAPARIN 40 MG/0.4 ML SYR SC SCH (10:04)
--- NOTE | 2016-06-10 14:03 | Neurology Consultation ---
Neurology Consultation Date of Consultation: Jun 10, 2016. Attending Physician: Lalo Marinelli MD Primary Care Physician: No Doctor, Assigned Reason for Consultation: altered MS History of Present Illness Source: patient, family Zeenat is an 85 year old female who has a PMH HTN, hyperthyroid, GERD, tongue CA , CAD x 2 stents, afib. presents to the ER with altered mental status. According to family on May 28 patient had an acute change in her mental status which was different than her baseline. At [facility] she was told her thyroid was abnormal and that she should follow up with her PCP. She has became increasingly combative and has been hallucinating. They tried to get her to her PCP appointment but Zeenat wouldn't let them take her out of the house. CT scan of her abdomen that is showing a large mass after she complained of abdominal pain. Labs show TSH > 100. Her granddaughter states she was hitting everyone and tossed a cell phone out the car window and was swearing which is not her normal. She was also talking to people that that were not there. She is very [place] and has cataracts in both eye which causes vision issues. Social History Alcohol Use: none Housing Status: lives with family Allergies Coded Allergies: No Known Allergies (Unverified , 06/09/16) Current Inpatient Medications Current Inpatient Medications Medications (Trade) Dose Ordered Sig/Rut Route Start Time Stop Time Status Last Admin Dose Admin Ioversol (Optiray 320) 125 ml UD PRN IV 06/09/16 16:45 06/13/16 16:44 Acetaminophen (Tylenol Tab) 650 mg Q4H PRN PO 06/09/16 21:15 07/09/16 21:14 Nitroglycerin (Nitrostat Tab) 0.4 mg UD PRN SL 06/09/16 21:15 07/09/16 21:14 Ondansetron HCl (Zofran Inj) 4 mg Q6H PRN IV 06/09/16 21:15 07/09/16 21:14 Tramadol HCl (Ultram Tab) 25 mg Q6H PRN PO 06/09/16 21:15 07/09/16 21:14 Hydromorphone HCl (Dilaudid Inj) 0.5 mg Q3H PRN IV 06/09/16 21:15 06/23/16 21:14 Haloperidol Lactate (Haldol Inj) 2 mg Q2H PRN IM 06/09/16 21:15 07/09/16 21:14 Amlodipine Besylate (Norvasc Tab) 5 mg DAILY PO 06/10/16 09:00 07/10/16 08:59 Levothyroxine Sodium (Synthroid Tab) 50 mcg DAILYBB PO 06/10/16 06:00 07/10/16 05:59 06/10/16 05:55 50 MCG Lisinopril (Zestril Tab) 20 mg DAILY PO 06/10/16 09:00 07/10/16 08:59 Ranitidine HCl (zANTac TAB) 150 mg BID PO 06/10/16 09:00 07/10/16 08:59 Simvastatin (Zocor Tab) 40 mg QPM PO 06/10/16 21:00 07/10/16 20:59 Sotalol HCl (Betapace Tab) 40 mg BID PO 06/10/16 09:00 07/10/16 08:59 Nicotine (Nicoderm Cq 7 Mg Patch) 1 patch QAM TD 06/10/16 09:00 07/10/16 08:59 06/10/16 10:04 1 PATCH Miscellaneous (Remove Nicoderm Patch) 1 ea HS N/A 06/10/16 21:00 07/10/16 20:59 Haloperidol (Haldol Tab) 2 mg Q4H PRN PO 06/10/16 03:30 07/10/16 03:29 Enoxaparin Sodium (Lovenox Inj) 40 mg DAILY SC 06/10/16 10:00 07/10/16 09:59 06/10/16 10:04 40 MG Clonidine HCl (Catapres Tab) 0.1 mg Q6H PRN PO 06/10/16 09:30 07/10/16 09:29 Aspirin (Ecotrin Tab) 81 mg QAM PO 06/11/16 09:00 07/11/16 08:59 Physical Exam Vital Signs (Past 24 Hrs): Date Time Temp Pulse Resp B/P Pulse Ox O2 Delivery O2 Flow Rate FiO2 06/10/16 12:00 Room Air 06/10/16 11:23 36.8 76 18 180/84 97 Room Air 06/10/16 08:00 Room Air 06/10/16 07:24 37.0 69 18 171/83 98 Room Air 06/10/16 04:00 94 Room Air 06/10/16 03:41 36.7 75 18 152/83 97 Room Air 06/09/16 23:59 94 Room Air 06/09/16 23:12 36.7 72 20 165/92 95 Room Air 06/09/16 21:53 36.3 75 18 179/109 94 Room Air 06/09/16 19:45 66 16 94 06/09/16 19:15 66 13 91 06/09/16 18:45 78 15 06/09/16 18:40 173/97 06/09/16 17:53 130/86 06/09/16 17:45 88 14 06/09/16 17:15 86 16 06/09/16 16:45 103 17 96 06/09/16 16:24 97 Room Air 06/09/16 16:15 107 27 97 06/09/16 16:03 110 06/09/16 16:00 37.1 113 22 167/123 98 Room Air 06/09/16 15:58 167/123 Physical Exam: Constitutional:, appearance nourished, healthy and normal sitting comfortably in bedside chair Ears, Nose, Mouth and Throat: mucous membranes moist, no injection and skin normal, eyes normal Cardiovascular: irregular irregular Respiratory: clear to auscultation (CTA) and no rales, rhonchi or wheeze Musculoskeletal: no peripheral edema and good distal pulses Skin: no stigmata of neurocutaneous disease noted and normal and intact Eyes: extraocular muscles intact (EOMI) and pupils equal, round and reactive to light (PERRL) NEUROLOGIC EXAMINATION: Mental status: Alert and interactive Oriented she knows she is in a hospital, year 2016, knows her home address Oriented to person Speech fluent with no evidence of aphasia Cranial Nerves no facial asymmetry Reflexes: Deep tendon reflexes were symmetrical and graded 2/5. Plantar responses were flexor. Gait/Stance: Posture normal. Gait normal: with steady with steps, base, turning and tandem gait. Strength: hand brokerage clerk 4/5 bilaterally fingers with ulner deviation bilaterally, walks with no assistance stands without assistance from arms of chair Laboratory Results Past 24 Hours: 06/10/16 05:40 Red Blood Count 3.95, Mean Corpuscular Volume 93.4, Mean Corpuscular Hemoglobin 31.1, Mean Corpuscular Hemoglobin Concent 33.3, Mean Platelet Volume 9.8, Neutrophils (%) (Auto) 58.2, Lymphocytes (%) (Auto) 28.1, Monocytes (%) (Auto) 11.9, Eosinophils (%) (Auto) 1.3, Basophils (%) (Auto) 0.3, Neutrophils # (Auto ) 3.53, Lymphocytes # (Auto) 1.70, Monocytes # (Auto) 0.72, Eosinophils # (Auto ) 0.08, Basophils # (Auto) 0.02 06/10/16 05:40 Test 06/09/16 17:12 06/09/16 17:50 06/09/16 17:53 06/10/16 05:40 Bedside Hemoglobin 13.6 g/dl (12.0-16.0) Bedside Hematocrit 40 % (37-47) Bedside Sodium 140 mEq/L (135-144) Bedside Potassium 3.0 mEq/L (3.3-5.0) Bedside Chloride 99 mEq/L (101-112) Bedside Total CO2 20 mEq/l (24-31) Bedside Blood Urea Nitrogen 14 mg/dl (7-18) Bedside Creatinine 0.9 mg/dl (0.6-1.3) Bedside Glucose (other) 209 mg/dl (70-99) Bedside Ionized Calcium (Ale) 1.11 mmol/l (1.12-1.32) Estimated Average Glucose 128 mg/dl Hemoglobin A1c 6.1 % (4.5-5.6) Magnesium Level 1.8 mg/dl (1.8-2.4) Total Bilirubin 0.4 mg/dl (0.2-1) Direct Bilirubin < 0.1 mg/dl (0-0.2) Aspartate Amino Transf (AST/SGOT) 18 U/L (15-37) Alanine Aminotransferase (ALT/SGPT) 19 U/L (12-78) Alkaline Phosphatase 76 U/L (45-117) Total Creatine Kinase 120 U/L (26-192) Creatine Kinase MB 1.3 ng/ml (0.5-3.6) Creatine Kinase MB Ratio 1.1 (0-3.0) Troponin I < 0.015 ng/ml (0-0.045) Total Protein 7.5 gm/dl (6.4-8.2) Albumin 3.4 gm/dl (3.4-5.0) Thyroid Stimulating Hormone (TSH) 113.000 uIu/ml (0.300-4.500) Free Thyroxine 0.70 ng/dl (0.80-1.60) Urine Color YELLOW Urine Appearance CLEAR (CLEAR) Urine pH 6.0 (4.5-7.5) Urine Specific [place] 1.002 (1.000-1.030) Urine Protein NEG (NEG) Urine Glucose (UA) NEG (NEG) Urine Ketones NEG (NEG) Urine Occult Blood NEG (NEG) Urine Nitrite NEG (NEG) Urine Bilirubin NEG (NEG) Urine Urobilinogen NEG (NEG) Urine Leukocyte Esterase NEG (NEG) White Blood Count 6.06 K/uL (4.8-10.8) Red Blood Count 3.95 M/uL (4.2-5.4) Hemoglobin 12.3 g/dL (12.0-16.0) Hematocrit 36.9 % (37-47) Mean Corpuscular Volume 93.4 fL (80-100) Mean Corpuscular Hemoglobin 31.1 pg (25-34) Mean Corpuscular Hemoglobin Concent 33.3 g/dl (32-36) Platelet Count 261 K/uL (130-400) Mean Platelet Volume 9.8 fL (7.4-10.4) Neutrophils (%) (Auto) 58.2 % Lymphocytes (%) (Auto) 28.1 % Monocytes (%) (Auto) 11.9 % Eosinophils (%) (Auto) 1.3 % Basophils (%) (Auto) 0.3 % Neutrophils # (Auto) 3.53 K/uL (1.4-6.5) Lymphocytes # (Auto) 1.70 K/uL (1.2-3.4) Monocytes # (Auto) 0.72 K/uL (0.11-0.59) Eosinophils # (Auto) 0.08 K/uL (0-0.5) Basophils # (Auto) 0.02 K/uL (0-0.2) RDW Standard Deviation 47.2 fL (36.4-46.3) RDW Coefficient of Variation 13.8 % (11.5-14.5) Immature Granulocyte % (Auto) 0.2 % Immature Granulocyte # (Auto) 0.01 K/uL (0.00-0.02) Anion Gap 13.0 mmol/L (3-11) Est Creatinine Clear Calc Drug Dose 44.7 ml/min Estimated GFR () 92.2 Estimated GFR (Non- 79.6 BUN/Creatinine Ratio 13.1 (10-20) Calcium Level 8.5 mg/dl (8.5-10.1) Test 06/10/16 06:53 Prothrombin Time 11.6 SECONDS (9.0-12.0) Prothromb Time International Ratio 1.1 (0.9-1.1) Imaging CT C/A- Large primarily cystic mass arising from the soft tissue pelvis and extending in a superior fashion. 2. Maximum dimensions are 22 x 22 x 12 cm. This contains several internal septations as well as several areas of peripheral wall thickening. This displaces the bowel laterally although there are no obstructive characteristics. No evidence for ascites or carcinomatosis/ omental implants. 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 Thickening of the endometrium at 18 mm. Differential considerations include endometrial hyperplasia versus neoplasia. Bladder appears to be intact but somewhat compressed presumably due to mass effect. Hiatal hernia. Impression 85 year old female with acute ms change from baseline Plan 1. EEG pending read 2. MRI brain with and without contrast -pending 3. TSH >100 can cause MS changes 4. evaluation of abdominal tumor for further treatment needed 5. B12, folate, RPR, lyme ordered 6. need psychiatry consult 7. appears MS change may be multi factorial further recommendations to follow after MRI completed I have seen and discussed above patient with Dr Nemesio Cuevas, neurology Patient seen family interviewed patient discussed with Liana Funk likely a multifactoria encephalopathy of recentt onset if family history is valid and with the marked elevation of the tsh and the ovarian mass there are a number of issues that need addressed Will wait for mri to eliminate mets EEG is normal and will defer on paraneoplastic workup pending tissue diagnosis of ovarian mass which may b benign but if a teratoma could be asociated with N NMDA receptor antibody will follow uip tomorrow If agitation perisists may need to get psych inovolved Nemesio Cuevas MD
[2016-06-10 15:54] LABS: LYME DISEASE AB IGM NEG (NEG)
--- NOTE | 2016-06-10 21:39 | DIAGNOSTIC IMAGING REPORT ---
Brain MRI WITHOUT CONTRAST HISTORY: Change in mental status personality change TECHNIQUE: Multiplanar multisequence MRI of the brain was performed without the use of contrast. COMPARISON STUDY: None. FINDINGS: Small focus of acute ischemic change left external capsule. Mild chronic small vessel change of aging throughout both cerebral hemispheres. Ventricular system is midline. Internal artery canals are symmetric. Limited study as the patient could not tolerate the exam IMPRESSION: Small punctate focus of acute ischemic change left external capsule. Age-related changes noted. Electronically signed by: Ruben Lovelace M.D. 06/10/2016 9:37 PM Dictated Date/Time: 06/10/2016 9:35 PM
[2016-06-10] MEDS: SIMVASTATIN 40 MG TAB PO SCH (21:48)
[2016-06-11] VITALS (10 sets, daily range): BP systolic 117–181; BP diastolic 65–105; PULSE 59–105; TEMP 36.5–36.8; O2SAT 94–99
[2016-06-11 01:13] LABS: RAPID PLASMA REAGIN NONREACTIVE (NONREACT)
--- NOTE | 2016-06-11 01:24 | ELECTROENCEPHALOGRAPH REPORT ---
REQUESTING PHYSICIAN: No requesting doctor. CLINICAL DIAGNOSIS: Change in mental status, question nonconvulsive seizure activity. ELECTROENCEPHALOGRAM DIAGNOSIS: Essentially normal during wakefulness. DESCRIPTION OF TRACING: This EEG was obtained as a bedside recording. No activation procedures were utilized. The video analysis of patient movement and behavior was obtained. During wakefulness, there is evidence for normal appearing background rhythm in the alpha range of up to 9 Hz of maximum frequency and 20-30 microvolts of maximum amplitude. This is maximum posterior head regions and bilaterally symmetrical. Polymorphic mid frequency theta activity is seen over all head regions without clear focal or regional predominance. Anterior head region, maximal bilaterally symmetrical low voltage fast activity in the beta range is present. From time to time, there are some prominent movement artifacts, but at no time is there evidence for activity that resembles potentially epileptogenic discharges. There is no evidence for focal spikes, focal sharp waves, spike and wave discharges, etc. INTERPRETATION: This EEG is essentially normal during wakefulness without evidence for focal or generalized encephalopathy and without evidence for potentially epileptogenic activity.
[2016-06-11] MEDS: LEVOTHYROXINE 25 MCG TAB PO SCH (05:38)
--- NOTE | 2016-06-11 08:37 | OB/GYN Progress Note ---
CHIEF SALES OFFICER Progress Note Date of Service Jun 11, 2016. Review of Systems VD day #2 pt doing well d/c home with instructions Objective Vital Signs Date Time Temp Pulse Resp B/P Pulse Ox O2 Delivery O2 Flow Rate FiO2 06/11/16 07:25 Room Air 06/11/16 07:10 36.6 78 18 117/72 97 Room Air 68 122/65 59 118/73 06/11/16 04:00 Room Air 06/11/16 03:53 36.7 88 18 124/73 97 Room Air 06/10/16 23:59 Room Air 06/10/16 23:48 36.9 82 16 128/72 97 Room Air 06/10/16 20:00 Room Air 06/10/16 19:08 36.7 105 18 132/80 98 Room Air 06/10/16 16:15 36.4 88 16 132/78 96 Room Air 06/10/16 16:00 Room Air 06/10/16 12:00 Room Air 06/10/16 11:23 36.8 76 18 180/84 97 Room Air Laboratory Results Last 24 Hours Test 06/10/16 14:35 Vitamin B12 Level 259 pg/mL Folate 13.04 ng/mL Rapid Plasma Reagin NONREACTIVE Lyme Disease IgM Antibody NEG
[2016-06-11] MEDS: SOTALOL HCL 80 MG TAB PO SCH ×2 (09:00→20:50)
[2016-06-11] MEDS: ASPIRIN 81 MG ECTAB PO SCH (09:04)
[2016-06-11] MEDS: AMLODIPINE BESYLATE 5 MG TAB PO SCH (09:05)
[2016-06-11] MEDS: LISINOPRIL 20 MG TAB PO SCH (09:06)
[2016-06-11] MEDS: RANITIDINE HCL 150 MG TAB PO SCH ×2 (09:06→20:50)
[2016-06-11] MEDS: NICOTINE 7 MG/24 HR TDSY TD SCH (09:07)
[2016-06-11] MEDS: ENOXAPARIN 40 MG/0.4 ML SYR SC SCH (09:09)
--- NOTE | 2016-06-11 09:21 | Clinical Documentation Query ---
CLINICAL DOCUMENTATION QUERY H&P clearly had metabolic encephalopathy documented. This documentation has fallen off the record. This patient has multiple metabolic reasons for what may be causing AMS. In your clinical opinion is this patient being managed for: ( + ) Metabolic encephalopathy in setting of ?UTI, Ovarian CA with brain mets, and/or Hypothyroidism. ( ) CVA with metabolic encephalopathy ( ) Other explanation of clinical findings (Please Explain) ( ) Unable to determine (Please Define) ( ) Need to Discuss ( ) Not Agree Please clarify and document your clinical opinion in the progress notes and discharge summary. Terms such as "probable", "suspected", "likely", "questionable", "possible", or "still to be ruled out" are acceptable. IF IN AGREEMENT, YOU MUST DOCUMENT ABOVE DIAGNOSTIC STATEMENT IN DAILY PROGRESS NOTES AND DISCHARGE SUMMARY. This document is not part of the patient's record. Thank You, Dl Baxter, RN [phone]
--- NOTE | 2016-06-11 11:25 | Progress Note ---
Internal Med Progress Note Date of Service: Jun 11, 2016. Provider Documentation: SUBJECTIVE: The patient was seen and examined Very hard of Hearing Very difficult to get any words out of her likely due to hearing impairment Denies any symptoms OBJECTIVE: Vital Signs-as noted below Exam: General-No acute distress Eyes-Normal ENT-normal Neck-Supple Lungs-Clear to ausucltate bilaterally Heart-Regular,nop murmur Abdomen-Benign,no masses,bowel sound present Extremities-No edema Neuro-AA Moves all limbs equally No focal neuro deficit appreciated Lab data as noted below. ASSESSMENT & PLAN: Metabolic encephalopathy in setting of possible UTI, Ovarian CA with brain mets , and/or Hypothyroidism. Doubt due to acute stroke - patient presented with 10 day history of increasing confusion and agitation - recent treatment of UTI -MRI of the Venu-Small punctate focus of acute ischemic change left external capsule. Age-related changes noted. 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 Lieberman - should be on Aspirin, will verify with family HX ARRHYTHMIA - on Sotalol -no issue DVT prophylaxis Lovenox Disposition pending Vital Signs: Date Time Temp Pulse Resp B/P Pulse Ox O2 Delivery O2 Flow Rate FiO2 06/11/16 17:32 96 16 169/96 94 Room Air 99 167/96 105 145/89 06/11/16 16:00 Room Air 06/11/16 15:37 36.7 90 16 118/68 98 Room Air 06/11/16 12:15 Room Air 06/11/16 12:11 36.5 82 20 151/84 97 Room Air 82 06/11/16 07:25 Room Air 06/11/16 07:10 36.6 78 18 117/72 97 Room Air 68 122/65 59 118/73 06/11/16 04:00 Room Air 06/11/16 03:53 36.7 88 18 124/73 97 Room Air 06/10/16 23:59 Room Air 06/10/16 23:48 36.9 82 16 128/72 97 Room Air 06/10/16 20:00 Room Air 06/10/16 19:08 36.7 105 18 132/80 98 Room Air Lab Results: Results Past 24 Hours Test 06/11/16 09:04 Range/Units
--- NOTE | 2016-06-11 13:44 | CONSULTATION REPORT ---
DATE OF CONSULTATION: 06/11/2016 IDENTIFYING DATA: Zeenat Vidal is an 85-year-old woman from [place], [place], who was brought to the Emergency Room by her family with change in mental status, agitation and hallucinations. Information is gathered from the electronic medical record as well as the patient's granddaughter at the bedside. The patient is essentially deaf. CHIEF COMPLAINT: Altered mental status. HISTORY OF PRESENT ILLNESS: Zeenat Vidal is an 85-year-old woman with a past medical history significant for coronary artery disease, GERD, hypertension, hypothyroidism, and a history of tongue cancer who, according to her granddaughter, had an acute onset of mental status changes on 05/28/2016. On that day, they took her to [facility] in [place] for evaluation, where it was discovered she had an elevated TSH of over 190. The recommendation was for her to follow up with her PCP. Family took her home, made PCP appointment, but the patient aggressively refused to go. She got combative, which according to the granddaughter is extremely unlike her. Granddaughter describes her as a quiet and introverted woman at baseline. She describes Zeenat as standing at windows at that time, showing pictures and things outside as if somebody is watching them, talking to people who are not there including her , playing with a baby doll and swearing, which is also out of character for her. On the day they brought her to the Emergency Room, granddaughter says that it took multiple people to carry her and a grit removal operator told to the truck in order to get her to the hospital. She also dumped out her cousin's purse as if looking for something and then went through cousin's pockets and dumped them all out as well. In the ER, lab work was significant for reconfirmation of an elevated TSH of 113 and free T4 of 0.70. Other lab tests were essentially negative including RPR, Lyme disease, CBC and chem profile. Imaging was performed including an abdomen and pelvis CT since she complained of abdominal pain, which ultimately revealed a 22 x 22 x 12 cm cystic mass, likely originating from the endometrium or ovaries. Brain MRI revealed only a small punctate focus of acute ischemia change in the left external capsule. She was admitted for further evaluation and treatment. She has been seen by neurology, DAVID Muhammad and Nemesio Cuevas MD, who have ordered an EEG, further evaluation of the abdominal tumor, and agree that her delirium is likely multifactorial given her severe state of hypothyroidism and abdominal mass. They also have not excluded an NMDA receptor encephalitis. At the time I see the patient, she is seated in the bedside chair, is nonverbal, but alert. Her granddaughter is at the bedside, who provides the history. She indicates that her grandmother is essentially deaf, being able to hear only a little bit out of her left ear and even if that must yell very close to her head. She outlines the above information. Her grandmother to her knowledge has never had a similar episode, her symptoms are acute and onset just prior to May 28 and completely out of character. CURRENT MEDICATIONS: 1. Aspirin 81 mg daily. 2. Zocor 40 mg q.p.m. 3. Lovenox. 4. Catapres 0.1 mg q. 6 hours p.r.n. 5. Norvasc 5 mg daily. 6. Vistaril 20 mg daily. 7. Zantac 150 mg b.i.d. 8. Betapace 40 mg b.i.d. 9. Nicoderm patch 7 mg daily. 10. Levothyroxine 50 mcg daily. 11. Haldol 2 mg q. 4 hours p.r.n. agitation. PAST PSYCHIATRIC HISTORY: The granddaughter is unaware of any previous psychiatric history. ALLERGIES: NKDA. PAST MEDICAL HISTORY: 1. Hypertension. 2. CAD, status post stenting. 3. Hypothyroidism. 4. Hyperglycemia. 5. Tobacco use disorder. FAMILY HISTORY: Not obtained at this time. SUBSTANCE USE HISTORY: According to family, the patient does not drink, but does smoke. PERSONAL HISTORY: The patient resides in [place] with one of her daughters. She has been twice, her first having and she has been 9 years to her second . She has 2 daughters, 5 sons and 62 grand and great grandchildren. MENTAL STATUS EXAMINATION: An 85-year-old woman with white hair, who is seated in the bedside chair, dressed in hospital gowns. She is alert, cooperative and in good behavioral control. She will make eye contact when you get her attention with hand motions. She is able to smile and wave. Her motor behavior is otherwise unremarkable. She does not talk at all during my time there. Her affect is flat when unattended to, smiling as she goodbye. Mood has recently been agitated. Thought process is unable to evaluate at this time. Granddaughter states that she has been having auditory and visual hallucinations. Her intelligence is estimated to be average based on granddaughter's representation. Her insight and judgment are currently impaired secondary to multifactorial delirium. VITAL SIGNS: Temp 36.5, pulse 82, respirations 20, blood pressure 151/84, and pulse ox 97% on room air. LABORATORIES: 1. CBC with diff -- notable only for RBCs low at 3.95, hematocrit low at 36.9, and RDW standard deviation of 47.2. 2. Chem profile unremarkable. 3. TSH -- 113. 4. Free T4 low at 0.70. 5. Urinalysis -- without evidence of infection. 6. RPR -- nonreactive. 7. Lyme disease antibody negative. IMAGING: Please see HPI. IMPRESSION: An 85-year-old woman admitted with acute onset behavioral and cognitive changes. I agree that she is delirious and likely multifactorial given her extremely elevated TSH and presentation of a very large abdominal, cystic mass. Differential includes an NMDA receptor encephalitis and serum testing for anti-NMDA antibody should be performed. I really do not see any intervention for psychiatry at this point as this is primarily a medical concern. That having been said, if the patient becomes agitated in a way that puts herself or other people at risk, would use low-dose Seroquel perhaps 25-50 mg q. 4 hours p.r.n. If she is unable or unwilling to take p.o., then I would continue with Haldol 2 mg IV or IM for agitation placing herself or others at risk. Would not like to see these medications introduced unless absolutely necessary as they can increase her risk for sudden in elderly patients. This is certainly an interesting case and we will follow along. We thank you for allowing us to participate in this woman's care. TIA
--- NOTE | 2016-06-11 16:27 | PROGRESS NOTE ---
DATE: 06/11/2016 Zeenat to me looks largely the same. She is more alert. She is irritable according to her daughters, but she is still pretty lethargic and with a TSH greater than 100 and I am not surprised this is her status. The MRI scan shows a very small external capsular infarction on the left which appears to be acute so this may be an embolic event or even a primary small vessel issue. [facility] is yet to evaluate her about the large ovarian mass and we are all waiting for this decision. At this point, all I would suggest is some aspirin to prevent further cerebrovascular accident, thyroid replacement and getting the opinion from [facility] about how aggressive they want to be regarding the ovarian mass and how they plan to get tissue samples if indeed they feel this is necessary. I will check back with her tomorrow. TIA
[2016-06-11] MEDS: SIMVASTATIN 40 MG TAB PO SCH (20:51)
[2016-06-11] MEDS ORDERED: CLONIDINE HCL 0.1 MG TAB PO PRN (22:30)
--- NOTE | 2016-06-11 23:52 | GYNECOLOGICAL CONSULTATION ---
DATE OF CONSULTATION: 06/11/[address] is [address] by Dr. Oliva. HISTORY OF PRESENT ILLNESS: The patient is an 85-year-old a frail white female, who was seen in the Emergency Room on 06/09/2015 with complaints of altered mental status. The patient was brought to the Emergency Room by her family. Family reports that the patient has been experiencing a change in mental status since April 27. She had been seen at [facility] Emergency Room and discharged home with diagnosis of abnormal thyroid levels. The patient was supposed to follow up with her PCP. She, however, has not been able to do so, has been combative and has been hallucinating and refused to leave the house to see her PCP. She was, therefore, brought back to the Emergency Room here at [facility] on June 09, during which she was admitted and workup included some serology as well as a CT scan which showed a rather large abdominal mass. The mass is suspicious for ovarian neoplasm or pathology. TRADER was, therefore, consulted. I had the opportunity to go see the patient today. She is hard of hearing and is a poor historian. This history has, therefore, been obtained from the recorded medical history from the ER and the slag motor operator's record. PAST MEDICAL HISTORY: 1. Coronary artery disease. 2. GERD. 3. Hypertension. 4. Hypothyroidism. 5. Tongue cancer. There is no record of past surgical history. FAMILY HISTORY: Noncontributory. SOCIAL HISTORY: The patient is a smoker. There is no record of alcohol or drug use. ALLERGIES: No known drug allergies. MEDICATIONS: The patient is on amlodipine, Norvasc, levothyroxine, lisinopril, potassium, Ranitidine, simvastatin and sotalol. PHYSICAL EXAMINATION: GENERAL: A well-developed, well-nourished, white female, in no acute distress. The patient is resting comfortably in bed, under observation. It is evident she has a large abdominal mass, consistent with a pelvic mass. HEART: S1, S2, regular rhythm and rate. LUNGS: Clear to auscultation bilaterally. ABDOMEN: The patient has an abdominal mass, about a 20-week size mass, moreover, it is mobile, it is nontender, positive bowel sounds. There does not appear to be ascites On physical exam. EXTREMITIES: No cyanosis, clubbing or edema. LABORATORY DATA: A CT scan is reviewed and it shows a large cystic mass originating in the pelvis. Mass is about 22 x 22 x 12 cm, appears to be the internal septations seen in the mass. This is consistent with an ovarian etiology, possibly involving the uterus. ASSESSMENT AND PLAN: An 85-year-old, who was admitted through the ER with complaints of change in mental status, agitation and hallucination. The patient was also found to have a rather large pelvic mass, which is suspicious for ovarian pathology. The patient has been seen by neurology and psychiatry. Psychiatry has described the patient as being delirious. She is difficult, and is not a good historian. I have, however, been able to obtain a lot of history from reading notes written by other physicians, who have obtained patient's history from family members. As far as TRADER is concerned, the patient's pelvic mass will require extensive surgery. This would be a laparotomy with possible staging for ovarian cancer. This surgery will have to be performed at [facility] by a TRADER oncologist. I am happy to make the arrangement, if the family wants to proceed with this endeavor. I have discussed this with Dr. Silverman, who is the physician environmental marketer for the patient today. Dr. Silverman will relay the message to family members and they would let me know if they are interested in pursuing surgery. I have discussed with Dr. Silverman the extensive nature of the surgery. The patient obviously has some other medical problems, including a history of coronary artery disease, hypertension. We will also have to take into consideration the overall health of the patient the risks associated with complications with this surgery for an 85-year-old. After the surgery, patient might still require things like chemotherapy or radiation. These are all issues that have to be discussed at length with the family. It would appear that the patient will not be able to make those decisions for herself at this stage. Dr. Silverman has assured me she will get back to me if the family is interested and then we will make arrangements for TRADER oncology in [place]. Thank you very much for the dictation and please do not hesitate to give me a call, if you have any more questions. TIA
[2016-06-12 04:30] VITALS: BP 109/72; PULSE 70; TEMP 36.8; O2SAT 99
[2016-06-12] MEDS: LEVOTHYROXINE 25 MCG TAB PO SCH (06:42)
[2016-06-12 07:58] VITALS: BP 168/84; PULSE 57; TEMP 36.4; O2SAT 97
[2016-06-12] MEDS: LISINOPRIL 20 MG TAB PO SCH (08:25)
[2016-06-12] MEDS: SOTALOL HCL 80 MG TAB PO SCH (08:26)
[2016-06-12] MEDS: ASPIRIN 81 MG ECTAB PO SCH (08:27)
[2016-06-12] MEDS: RANITIDINE HCL 150 MG TAB PO SCH (08:27)
[2016-06-12] MEDS: AMLODIPINE BESYLATE 5 MG TAB PO SCH (08:27)
[2016-06-12] MEDS: ENOXAPARIN 40 MG/0.4 ML SYR SC SCH (08:28)
[2016-06-12] MEDS: NICOTINE 7 MG/24 HR TDSY TD SCH (08:28)
[2016-06-12 09:17] LABS: HEMATOCRIT 38.9 % (37-47); MEAN CELL VOLUME 93.7 fL (80-100); MEAN CORPUSCULAR HEMOGLOBIN 31.3 pg (25-34); MEAN CORPUSCULAR HGB CONC 33.4 g/dl (32-36); MEAN PLATELET VOLUME 9.3 fL (7.4-10.4); PLATELET COUNT 273 K/uL (130-400); RED BLOOD COUNT 4.15 M/uL (4.2-5.4); WHITE BLOOD COUNT 6.05 K/uL (4.8-10.8)
[2016-06-12 09:42] LABS: BUN/CREATININE RATIO 10.4 (10-20); CALCIUM 8.7 mg/dl (8.5-10.1); CREATININE 0.7 mg/dl (0.60-1.20); POTASSIUM 3.4 mmol/L (3.5-5.1)
[2016-06-12 09:45] LABS: CHOLESTEROL/HDL RATIO 3.5
--- NOTE | 2016-06-12 11:49 | Progress Note ---
Internal Med Progress Note Date of Service: Jun 12, 2016. Provider Documentation: SUBJECTIVE: The patient was seen and examined Very hard of Hearing Very difficult to get any words out of her likely due to hearing impairment Denies any symptoms OBJECTIVE: Vital Signs-as noted below Exam: General-No acute distress at rest Eyes-Normal ENT-normal Neck-Supple Lungs-Clear to ausucltate bilaterally Heart-Regular,no murmur appreciated Abdomen-Benign,no masses,bowel sound present Extremities-No edema Neuro-AA Moves all limbs equally No focal neuro deficit appreciated Lab data as noted below. ASSESSMENT & PLAN: Metabolic encephalopathy in setting of possible UTI, Ovarian CA with brain mets , and/or Hypothyroidism. Doubt due to acute stroke - patient presented with 10 day history of increasing confusion and agitation - recent treatment of UTI -MRI of the Venu-Small punctate focus of acute ischemic change left external capsule. Age-related changes noted. 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 Condition resolved Psychiatry input appreciated No more episodes PELVIC MASS - CT abd/pelvis shows large pelvic mass concerning for ovarian neoplasm -CT head negative -INFRASTRUCTURE CONSULTANT consulted-appreciate input -Discussed in detailed with the Daughter as advised by the INFRASTRUCTURE CONSULTANT -will provide more information if the family members are willing to pursue surgery HYPOTHYROIDISM - TSH > 100 - no other overt signs of myxedema coma - levothyroxine increased from 25 to 50mcg - repeat TFTs in 3-4 weeks HTN - on amlodipine and lisinopril - monitor CAD - s/p stenting x 2 in 2013 at [facility] - follows with DR. Lieberman - should be on Aspirin, will verify with family HX ARRHYTHMIA - on Sotalol -no issue DVT prophylaxis Lovenox Disposition Likely home today Vital Signs: Date Time Temp Pulse Resp B/P Pulse Ox O2 Delivery O2 Flow Rate FiO2 06/12/16 08:00 Room Air 06/12/16 07:58 36.4 57 18 168/84 97 Room Air 06/12/16 04:30 36.8 70 18 109/72 99 Room Air 06/12/16 04:00 Room Air 06/12/16 00:00 Room Air 06/11/16 23:45 36.8 63 16 178/89 97 Room Air 06/11/16 22:00 81 177/100 06/11/16 21:58 36.6 178/105 96 Room Air 06/11/16 21:34 36.6 74 17 99 06/11/16 20:15 36.6 74 17 148/81 99 Room Air 06/11/16 20:00 Room Air 06/11/16 17:32 96 16 169/96 94 Room Air 99 167/96 105 145/89 06/11/16 16:00 Room Air 06/11/16 15:37 36.7 90 16 118/68 98 Room Air 06/11/16 12:15 Room Air 06/11/16 12:11 36.5 82 20 151/84 97 Room Air 82 Lab Results: Results Past 24 Hours Test 06/12/16 09:05 Range/Units White Blood Count 6.05 4.8-10.8 K/uL Red Blood Count 4.15 4.2-5.4 M/uL Hemoglobin 13.0 12.0-16.0 g/dL Hematocrit 38.9 37-47 % Mean Corpuscular Volume 93.7 80-100 fL Mean Corpuscular Hemoglobin 31.3 25-34 pg Mean Corpuscular Hemoglobin Concent 33.4 32-36 g/dl RDW Standard Deviation 47.0 36.4-46.3 fL RDW Coefficient of Variation 13.7 11.5-14.5 % Platelet Count 273 130-400 K/uL Mean Platelet Volume 9.3 7.4-10.4 fL Sodium Level 140 136-145 mmol/L Potassium Level 3.4 3.5-5.1 mmol/L Chloride Level 103 98-107 mmol/L Carbon Dioxide Level 30 21-32 mmol/L Anion Gap 7.0 3-11 mmol/L Blood Urea Nitrogen 7 7-18 mg/dl Creatinine 0.70 0.60-1.20 mg/dl Est Creatinine Clear Calc Drug Dose 44.5 ml/min Estimated GFR () 92.2 Estimated GFR (Non- 79.6 BUN/Creatinine Ratio 10.4 10-20 Random Glucose 83 70-99 mg/dl Calcium Level 8.7 8.5-10.1 mg/dl Triglycerides Level 93 0-150 mg/dl Cholesterol Level 191 0-200 mg/dl HDL Cholesterol 55 mg/dl LDL Cholesterol, Calculated 117 mg/dl VLDL Cholesterol, Calculated 19 mg/dl Cholesterol/HDL Ratio 3.5
[2016-06-12 11:59] VITALS: BP 106/70; PULSE 65; TEMP 36.4; O2SAT 98
[2016-06-12] MEDS ORDERED: ASPEC81 PO (15:12)
[2016-06-12] MEDS ORDERED: HLD1 PO (15:12)
[2016-06-12] MEDS ORDERED: SRQ200 PO (15:22)
--- NOTE | 2016-06-12 15:25 | Discharge Instructions ---
Discharge Instructions Admission Reason for Admission: Encephalopathy Discharge Discharge Diagnosis / Problem: Metabolic Encephalopathy,Acute Delirium, Abdominal Mass,Hypothyroidism Discharge Goals Goal(s): Prevent Disease Progression Activity Recommendations Activity Limitations: resume your previous activity . Instructions / Follow-Up Instructions / Follow-Up Your doctors office will call with Appointment. Current Hospital Diet Patient's current hospital diet: AHA Diet (Heart Healthy) Discharge Diet Recommended Diet: AHA Diet (Heart Healthy) Pending Studies Studies pending at discharge: no Laboratory Results Hemoglobin A1c Test 06/09/16 17:50 Range/Units Estimated Average Glucose 128 mg/dl Hemoglobin A1c 6.1 H 4.5-5.6 % Lipid Panel Test 06/12/16 09:05 Range/Units Triglycerides Level 93 0-150 mg/dl Cholesterol Level 191 0-200 mg/dl HDL Cholesterol 55 mg/dl Cholesterol/HDL Ratio 3.5 LDL Cholesterol, Calculated 117 mg/dl Medical Emergencies . Who to Call and When: Medical Emergencies: If at any time you feel your situation is an emergency, please call 911 immediately. . Non-Emergent Contact Non-Emergency issues call your: Primary Care Provider . Past History Medical & Surgical History: (1) Encephalopathy (2) HTN (hypertension) (3) Hypothyroidism . "Provider Documentation" section prepared by Mohit Oliva. VTE Core Measure Inpt VTE Proph given/why not?: Enoxaparin (Lovenox)SQ
[2016-06-12 15:38] VITALS: BP 106/70; PULSE 65; TEMP 36.4; O2SAT 98
--- NOTE | 2016-06-12 18:59 | Discharge Summary ---
Discharge Summary Date of Service Jun 12, 2016. Discharge Summary Admission Date: Jun 09, 2016 at 20:22 Discharge Date: Jun 12, 2016 Discharge Disposition: Home Principal Diagnosis: Metabolic Encephalopathy,Acute Delirium,Abdominal Mass,Hypothyroidism Secondary Diagnoses/Problems: Please see H&P Consultations: DISCHARGE PLANNER,Neurology and Psychiatry Pending Studies/Follow-Up: Can Call Dr Sullivan's office for follow up of the Abdominal mass Medication Reconciliation New Medications: Quetiapine Fumarate (Seroquel) 200 Mg Tab 25 MG PO Q4H PRN for Anxiety, #10 Aspirin (Aspirin EC Low Dose) 81 Mg Ectab 81 MG PO QAM for 30 Days, #30 Continued Medications: Amlodipine (Norvasc) 5 Mg Tab 5 MG PO DAILY, TAB Levothyroxine Sodium (Synthroid) 25 Mcg Tab 50 MCG PO QAM Lisinopril (Zestril) 20 Mg Tab 20 MG PO DAILY, TAB Potassium Ext Rel (Klor-Con) 20 Meq Tabcr 20 MEQ PO DAILY, TAB Ranitidine Hcl (Zantac) 150 Mg Tab 150 MG PO BID, TAB Simvastatin (Zocor) 40 Mg Tab 40 MG PO QPM, TAB Sotalol Hcl (Sotalol Hcl) 80 Mg Tab 40 MG PO BID, TAB 3 Refills Admission Information HPI (per Admitting provider): 85 year old female who presents to the ER with altered mental status. Family is at the bedside who provide the history. They report that on May 28 patient had an acute change in her mental status. They report she was much more confused than her baseline. She was taken to [facility] ED and were told that her thyroid was abnormal and that she should follow up with her PCP. Patient's mental status has continued to get worse. She has become increasingly combative and has been hallucinating. Family has made multiple appointments with her PCP however they could not get her out of the house. Today in the ED patient was grabbing her stomach and appeared to be in pain. No other symptoms were noted. In the ED, patient had a CT scan of her abdomen that is showing a large mass, possibly ovarian neoplasm in nature. Labs show TSH > 100 but are otherwise unremarkable. Vitals are stable. Patient received IM Haldol and Ativan and is currently resting quietly in bed. Past Medical/Surgical History Medical Problems: (1) CAD (coronary artery disease) Permanent Comment: s/p stenting x 2 Status: Chronic (2) GERD (gastroesophageal reflux disease) Status: Chronic (3) HTN (hypertension) Status: Chronic (4) Hypothyroidism Status: Chronic (5) Tongue cancer Permanent Comment: s/p resection Status: Chronic Family History non contributory due to patient's age Social History Smoking Status: Current Every Day Smoker Alcohol Use: none Housing status: lives with family Allergies Coded Allergies: No Known Allergies (Unverified , 06/09/16) Home Medications Scheduled Amlodipine (Norvasc), 5 MG PO DAILY Levothyroxine Sodium (Synthroid), 25 MCG PO QAM Lisinopril (Zestril), 20 MG PO DAILY Potassium Ext Rel (Klor-Con), 20 MEQ PO DAILY Ranitidine Hcl (Zantac), 150 MG PO BID Simvastatin (Zocor), 40 MG PO QPM Sotalol Hcl (Sotalol Hcl), 40 MG PO BID Review of Systems unable to be completed with patient due to mental status Physical Ex - H&P Physical Exam Vital Signs Date Time Temp Pulse Resp B/P Pulse Ox O2 Delivery O2 Flow Rate FiO2 06/09/16 19:45 66 16 94 06/09/16 19:15 66 13 91 06/09/16 18:45 78 15 06/09/16 18:40 173/97 06/09/16 17:53 130/86 06/09/16 17:45 88 14 06/09/16 17:15 86 16 06/09/16 16:45 103 17 96 06/09/16 16:24 97 Room Air 06/09/16 16:15 107 27 97 06/09/16 16:03 110 06/09/16 16:00 37.1 113 22 167/123 98 Room Air 06/09/16 15:58 167/123 General Appearance: no apparent distress Head: normocephalic Eyes: normal inspection ENT: hearing grossly normal Neck: supple, no JVD Respiratory/Chest: lungs clear, normal breath sounds, no respiratory distress Cardiovascular: regular rate, rhythm, no edema, normal peripheral pulses Abdomen/GI: normal bowel sounds, non tender, soft, + distended Extremities/Musculoskelatal: normal inspection, no calf tenderness Neurologic/Psych: + pertinent finding (opens eyes to verbal stimuli however does not speak; noted patient received IM Haldol and Ativan in ED ) Skin: normal color, warm/dry Diagnostics - H&P Diagnostics Laboratory Results Results Past 24 Hours Test 06/09/16 17:12 06/09/16 17:50 06/09/16 17:53 Range/Units Bedside Hemoglobin 13.6 12.0-16.0 g/dl Bedside Hematocrit 40 37-47 % Bedside Sodium 140 135-144 mEq/L Bedside Potassium 3.0 3.3-5.0 mEq/L Bedside Chloride 99 101-112 mEq/L Bedside Total CO2 20 24-31 mEq/l Anion Gap 24.0 17.0 3-11 mmol/L Bedside Blood Urea Nitrogen 14 7-18 mg/dl Bedside Creatinine 0.9 0.6-1.3 mg/dl Bedside Glucose (other) 209 70-99 mg/dl Bedside Ionized Calcium (Ale) 1.11 1.12-1.32 mmol/l White Blood Count 6.74 4.8-10.8 K/uL Red Blood Count 4.26 4.2-5.4 M/uL Hemoglobin 13.6 12.0-16.0 g/dL Hematocrit 40.6 37-47 % Mean Corpuscular Volume 95.3 80-100 fL Mean Corpuscular Hemoglobin 31.9 25-34 pg Mean Corpuscular Hemoglobin Concent 33.5 32-36 g/dl Platelet Count 267 130-400 K/uL Mean Platelet Volume 10.1 7.4-10.4 fL Neutrophils (%) (Auto) 70.4 % Lymphocytes (%) (Auto) 19.7 % Monocytes (%) (Auto) 8.2 % Eosinophils (%) (Auto) 1.5 % Basophils (%) (Auto) 0.1 % Neutrophils # (Auto) 4.74 1.4-6.5 K/uL Lymphocytes # (Auto) 1.33 1.2-3.4 K/uL Monocytes # (Auto) 0.55 0.11-0.59 K/uL Eosinophils # (Auto) 0.10 0-0.5 K/uL Basophils # (Auto) 0.01 0-0.2 K/uL RDW Standard Deviation 48.3 36.4-46.3 fL RDW Coefficient of Variation 13.9 11.5-14.5 % Immature Granulocyte % (Auto) 0.1 % Immature Granulocyte # (Auto) 0.01 0.00-0.02 K/uL Sodium Level 142 136-145 mmol/L Potassium Level 3.0 3.5-5.1 mmol/L Chloride Level 103 98-107 mmol/L Carbon Dioxide Level 22 21-32 mmol/L Blood Urea Nitrogen 14 7-18 mg/dl Creatinine 1.30 0.60-1.20 mg/dl Est Creatinine Clear Calc Drug Dose 28.0 ml/min Estimated GFR () 43.6 Estimated GFR (Non- 37.6 BUN/Creatinine Ratio 10.8 10-20 Random Glucose 192 70-99 mg/dl Calcium Level 8.6 8.5-10.1 mg/dl Total Bilirubin 0.4 0.2-1 mg/dl Direct Bilirubin < 0.1 0-0.2 mg/dl Aspartate Amino Transf (AST/SGOT) 18 15-37 U/L Alanine Aminotransferase (ALT/SGPT) 19 12-78 U/L Alkaline Phosphatase 76 45-117 U/L Total Creatine Kinase 120 26-192 U/L Creatine Kinase MB 1.3 0.5-3.6 ng/ml Creatine Kinase MB Ratio 1.1 0-3.0 Troponin I < 0.015 0-0.045 ng/ml Total Protein 7.5 6.4-8.2 gm/dl Albumin 3.4 3.4-5.0 gm/dl Thyroid Stimulating Hormone (TSH) > 100.000 0.300-4.500 uIu/ml Urine Color YELLOW Urine Appearance CLEAR CLEAR Urine pH 6.0 4.5-7.5 Urine Specific [place] 1.002 1.000-1.030 Urine Protein NEG NEG Urine Glucose (UA) NEG NEG Urine Ketones NEG NEG Urine Occult Blood NEG NEG Urine Nitrite NEG NEG Urine Bilirubin NEG NEG Urine Urobilinogen NEG NEG Urine Leukocyte Esterase NEG NEG Diagnostic Radiology CXR Impression: Age-related change. No acute process. CT HEAD IMPRESSION: Chronic change. No acute process. CT ABD/PELVIS IMPRESSION: 1. Large primarily cystic mass arising from the soft tissue pelvis and extending in a superior fashion. 2. Maximum dimensions are 22 x 22 x 12 cm. 3. This contains several internal septations as well as several areas of peripheral wall thickening. 4. This displaces the bowel laterally although there are no obstructive characteristics. 5. No evidence for ascites or carcinomatosis/omental implants. 6. 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 7. Thickening of the endometrium at 18 mm. Differential considerations include endometrial hyperplasia versus neoplasia. 8. Bladder appears to be intact but somewhat compressed presumably due to mass effect. Hiatal hernia. Impression - H&P Impression Assessment and Plan ALTERED MENTAL STATUS - patient presenting with 10 day history of increasing confusion and agitation - CT abd/pelvis shows large pelvic mass concerning for ovarian neoplasm - CT head negative; likely will need MRI - U/A clean PELVIC MASS - concerning for ovarian neoplasm - gyne consult HYPOTHYROIDISM - TSH > 100 - adjust levothyroxine HTN - on amlodipine and lisinopril CAD - s/p stenting x 2 in 2013 at [facility] - follows with DR. Lieberman - will get records ? HX ARRHYTHMIA - on Sotalol - will need to review cardiology records Attending Note Assessment/Plan IM ATTENDING : Patient seen and examined. Preceding documentation by WYATT Gutiérrez, reviewed. FINAL ASSESSMENT AND PLAN as follows: 1. Encephalopathy in the last 2 weeks differentials include : CVA, HOURLY SHIFT tumor 2. Hypertension stable 3. CAD status post stenting 4. SSS, px refused PPM as per family 5. hypothyroidism, TSH elevated questionable compliance 6. hyperglycemia rule out DM 7. ongoing tobacco abuse. 8. Pelvic mass, probable malignancy PCU. MRI of the brain. Further management pending MRI results. Gynecology consults for pelvic mass. Check hemoglobin A1c. increase Levothyroxine dose, recheck TSH next month PT/OT evaluation. DVT prophylaxis Lovenox subQ. Full code as per daughter, Miss Charis Sullivan. Contact number [phone] Physical Exam (per Admitting): General Appearance: no apparent distress Head: normocephalic Eyes: normal inspection ENT: hearing grossly normal Neck: supple, no JVD Respiratory/Chest: lungs clear, normal breath sounds, no respiratory distress Cardiovascular: regular rate, rhythm, no edema, normal peripheral pulses Abdomen/GI: normal bowel sounds, non tender, soft, + distended Extremities/Musculoskelatal: normal inspection, no calf tenderness Neurologic/Psych: + pertinent finding (opens eyes to verbal stimuli however does not speak; noted patient received IM Haldol and Ativan in ED ) Skin: normal color, warm/dry Hospital Course Metabolic encephalopathy in setting of possible UTI, Ovarian CA with brain mets , and/or Hypothyroidism. Doubt due to acute stroke - patient presented with 10 day history of increasing confusion and agitation - recent treatment of UTI -MRI of the Venu-Small punctate focus of acute ischemic change left external capsule. Age-related changes noted. 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 - follows with DR. Lieberman - should be on Aspirin, will verify with family HX ARRHYTHMIA - on Sotalol -no issue DVT prophylaxis Lovenox Disposition Likely home today Total time spent on discharge = 35 minutes This includes examination of the patient, discharge planning, medication reconciliation, and communication with other providers. Discharge Instructions Reason for Admission: Encephalopathy Discharge Discharge Diagnosis / Problem: Metabolic Encephalopathy,Acute Delirium, Abdominal Mass,Hypothyroidism Discharge Goals Goal(s): Prevent Disease Progression Activity Recommendations Activity Limitations: resume your previous activity . Instructions / Follow-Up Instructions / Follow-Up Your doctors office will call with Appointment. Current Hospital Diet Patient's current hospital diet: AHA Diet (Heart Healthy) Discharge Diet Recommended Diet: AHA Diet (Heart Healthy) Pending Studies Studies pending at discharge: no Laboratory Results Hemoglobin A1c Test 06/09/16 17:50 Range/Units Estimated Average Glucose 128 mg/dl Hemoglobin A1c 6.1 H 4.5-5.6 % Lipid Panel Test 06/12/16 09:05 Range/Units Triglycerides Level 93 0-150 mg/dl Cholesterol Level 191 0-200 mg/dl HDL Cholesterol 55 mg/dl Cholesterol/HDL Ratio 3.5 LDL Cholesterol, Calculated 117 mg/dl Medical Emergencies . Who to Call and When: Medical Emergencies: If at any time you feel your situation is an emergency, please call 911 immediately. . Non-Emergent Contact Non-Emergency issues call your: Primary Care Provider . Past History Medical & Surgical History: (1) Encephalopathy (2) HTN (hypertension) (3) Hypothyroidism . "Provider Documentation" section prepared by Mohit Oliva. VTE Core Measure Inpt VTE Proph given/why not?: Enoxaparin (Lovenox)SQ <Electronically signed by Mohit Oliva M.D.>
--- NOTE | 2016-06-13 18:20 | ECHOCARDIOGRAM REPORT ---
*NOTICE TO RECEIVING LIBERTARIAN AGENCY This information is strictly Confidential and protected under [place] law. [place] law prohibits you from making any further disclosure of this information unless further disclosure is expressly permitted by the written consent of the person to whom it pertains or is authorized by law. A general authorization for the release of medical or other information is not sufficient for this purpose. Hospital accepts no responsibility if the information is made available to any other person, INCLUDING THE PATIENT. Interpretation Summary * Name: PAOLA CARTAGENA Study Date: 06/12/2016 02:41 PM BP: 109/72 mmHg * Patient Location: C.2T\S\S231\S\1 HR: 72 * : 1930 (M/d/yyy) Gender: Female Height: 59 in * Age: 85 yrs Ethnicity: CA Weight: 120 lb * Ordering Physician: Mohit Oliva * Referring Physician: UNKNOWN * Performed By: Kyra Saez RCS * * Reason For Study: STROKE * BSA: 1.5 m2 * -- Conclusions -- * The left ventricular wall motion is normal. * The basal septum is thickened and angulated consistent with sigmoid septum. * There is mild concentric left ventricular hypertrophy. * The LV Ejection Fraction = 60-65%. * Grade I diastolic dysfunction, (abnormal relaxation pattern). * There is no evidence of atrial septal defect, but resolution does not allow assessment for a patent foramen ovale despite administration of agitated saline contrast. Procedure Details * A complete two-dimensional transthoracic echocardiogram was performed (2D, M-mode, Doppler and color flow Doppler). * A saline contrast injection was performed to assess for cardiac shunting. * The injection was performed through an intravenous line in the right arm. * The attending nurse who injected the saline contrast was MAIN EVERETT CPL, RN. * A total of 10 cc of agitated saline was given. Left Ventricle * The left ventricle is normal in size. * The basal septum is thickened and angulated consistent with sigmoid septum. * There is mild concentric left ventricular hypertrophy. * Left ventricular systolic function is normal. * Ejection Fraction = 60-65%. * The left ventricular wall motion is normal. Right Ventricle * The right ventricle is normal size. * The right ventricular systolic function is normal as assessed by tricuspid annular plane systolic excursion (TAPSE) (normal >1.5 cm). Atria * The left atrial size is normal. * Right atrial size is normal. * There is no evidence of atrial septal defect, but resolution does not allow assessment for a patent foramen ovale. Mitral Valve * The mitral valve is normal. * There is no mitral valve stenosis. * Significant mitral regurgitation is absent. Tricuspid Valve * The tricuspid valve is normal. * There is no tricuspid stenosis. * Significant tricuspid regurgitation is absent. Aortic Valve * The aortic valve is trileaflet. * Aortic stenosis is absent. * There is no significant aortic regurgitation. Pulmonic Valve * The pulmonary valve is not well seen, but the Doppler examination is normal without significant regurgitation or stenosis. Great Vessels * The aortic root and proximal ascending aorta are normal sized. Pericardium/Pleural * There is no pericardial effusion. Great Vessels * Normal inferior vena cava diameter and respiratory variation suggests normal central venous pressure. * Normal inferior vena cava size and collapsability with sniff indicates a normal right atrial pressure of 3 mmHg Left Ventricular Diastolic Function * Grade I diastolic dysfunction, (abnormal relaxation pattern). MMode 2D Measurements and Calculations IVSd 1.2 cm IVSs 1.4 cm LVIDd 3.2 cm LVIDs 2.0 cm LVPWd 1.2 cm LVPWs 1.3 cm IVS/LVPW 1.0 FS 37.1 % EDV(Teich) 40.5 ml ESV(Teich) 12.8 ml EF(Teich) 68.4 % EDV(cubed) 32.3 ml ESV(cubed) 8.1 ml EF(cubed) 75.1 % % IVS thick 14.9 % % LVPW thick 6.4 % LV mass(C)d 120.2 grams LV mass(C)dI 81.0 grams/m\S\2 LV mass(C)s 79.3 grams LV mass(C)sI 53.5 grams/m\S\2 SV(Teich) 27.7 ml SI(Teich) 18.7 ml/m\S\2 SV(cubed) 24.3 ml SI(cubed) 16.4 ml/m\S\2 Ao root diam 3.8 cm Ao root area 11.4 cm\S\2 ACS 1.3 cm LVOT diam 1.9 cm LVOT area 3.0 cm\S\2 LVAd ap4 18.9 cm\S\2 LVLd ap4 6.3 cm EDV(MOD-sp4) 46.6 ml EDV(sp4-el) 48.1 ml LVAs ap4 10.7 cm\S\2 LVLs ap4 5.1 cm ESV(MOD-sp4) 18.2 ml ESV(sp4-el) 19.0 ml EF(MOD-sp4) 60.9 % EF(sp4-el) 60.4 % LVAd ap2 22.9 cm\S\2 LVLd ap2 7.1 cm EDV(MOD-sp2) 60.7 ml EDV(sp2-el) 63.2 ml LVAs ap2 12.9 cm\S\2 LVLs ap2 5.4 cm ESV(MOD-sp2) 25.5 ml ESV(sp2-el) 26.2 ml EF(MOD-sp2) 58.1 % EF(sp2-el) 58.5 % LVLd %diff 10.1 % EDV(MOD-bp) 55.7 ml LVLs %diff 4.8 % ESV(MOD-bp) 21.7 ml EF(MOD-bp) 61.1 % SV(MOD-sp4) 28.4 ml SI(MOD-sp4) 19.1 ml/m\S\2 SV(MOD-sp2) 35.3 ml SI(MOD-sp2) 23.8 ml/m\S\2 SV(MOD-bp) 34.0 ml SI(MOD-bp) 22.9 ml/m\S\2 SV(sp4-el) 29.0 ml SI(sp4-el) 19.5 ml/m\S\2 SV(sp2-el) 36.9 ml SI(sp2-el) 24.9 ml/m\S\2 Doppler Measurements and Calculations MV E max cyndy 60.9 cm/sec MV A max cyndy 94.9 cm/sec MV E/A 0.64 MV P1/2t max cyndy 64.7 cm/sec MV P1/2t 93.6 msec MVA(P1/2t) 2.4 cm\S\2 MV dec slope 202.6 cm/sec\S\2 MV dec time 0.43 sec Ao V2 max 112.1 cm/sec Ao max PG 5.0 mmHg Ao max PG (full) 2.4 mmHg CINDY(V,A) 2.1 cm\S\2 CINDY(V,D) 2.1 cm\S\2 LV V1 max PG 2.6 mmHg LV V1 max 80.3 cm/sec PA V2 max 80.0 cm/sec PA max PG 2.6 mmHg PI max cyndy 151.8 cm/sec PI max PG 9.2 mmHg PI dec slope 104.7 cm/sec\S\2 PI P1/2t 424.8 msec TR max cyndy 242.3 cm/sec
== END 2016-06-12 16:05 | disposition home or self-care (01) | DRG 754 ==
LOC: ENRESERVTM → ENRESERVDT → C.EDB 15:46 → C.2T 20:22 → C.MED 06-11 21:44
PROVIDERS: ADMIT Internal Medicine; ATTEND Internal Medicine
DX: C56.9 Malignant neoplasm of unspecified ovary (principal); G93.41 Metabolic encephalopathy; N39.0 Urinary tract infection, site not specified; C79.31 Secondary malignant neoplasm of brain; E03.9 Hypothyroidism, unspecified; F03.90 Unspecified dementia, unspecified severity, without behavioral disturbance, psychotic disturbance, mood disturbance, and anxiety; I10 Essential (primary) hypertension; K21.9 Gastro-esophageal reflux disease without esophagitis; I25.10 Atherosclerotic heart disease of native coronary artery without angina pectoris; I49.9 Cardiac arrhythmia, unspecified; H91.90 Unspecified hearing loss, unspecified ear; Z79.899 Other long term (current) drug therapy; Z85.810 Personal history of malignant neoplasm of tongue; Z98.61 Coronary angioplasty status; F17.200 Nicotine dependence, unspecified, uncomplicated